=== PATIENT | female | born 1990 | race Caucasian/White ===

== ENCOUNTER 2018-08-19 12:41 | Emergency (ER) | payer OTHER, SELFPAY ==
--- NOTE | 2018-08-19 14:11 | RAD REPORT ---
EXAM DESCRIPTION: US - Abdomen Exam Limited - 08/19/2018 2:02 pm CLINICAL HISTORY: right sided abd pain COMPARISON: No comparisons FINDINGS: The gallbladder demonstrates no gallstones. No pericholecystic fluid or gallbladder wall t hickening. The common bile duct is normal measuring 2 mm. The liver demonstrates no findings of intrahepatic biliary dilatation. IMPRESSION: Unremarkable examination.
[2018-08-19] MEDS ORDERED: ONDANSETRON 4 MG/2 ML VIAL ONE (14:12)
[2018-08-19] MEDS ORDERED: MORPHINE 4 MG/ML SYR ONE (14:12)
[2018-08-19] MEDS ORDERED: NA CHLORIDE 0.9% 1,000 ML ONE (14:13)
[2018-08-19 15:16] LABS: ALT/SGPT 16 U/L (12-78); AST/SGOT 16 U/L (15-37); Albumin 3.5 g/dL (3.4-5.0); Alkaline Phosphatase 59 U/L (45-117); BUN Blood Urea Nitrogen 17 mg/dL (7-18); Bicarbonate 25 mmol/L (21-32); Bilirubin Direct 0.2 mg/dL (0-0.2); Bilirubin Total 0.7 mg/dL (0.2-1.0); Glucose Level 76 mg/dL (74-106); Lipase 105 U/L (73-393); Potassium 3.3 mmol/L (3.5-5.1); Protein, Total 7.4 g/dL (6.4-8.2); Sodium Level 139 mmol/L (136-145)
[2018-08-19 15:40] LABS: Urine Bacteria <20 /HPF (<20); Urine RBC <5 /HPF (NONE SEEN)
[2018-08-19 15:41] LABS: Urine Blood NEGATIVE (NEG); Urine Glucose NEGATIVE (NEG); Urine Protein NEGATIVE (NEG)
[2018-08-19 15:41] LABS: Urine Culture Reflex Order NOT NEEDED; Urine Mucus 1+ /HPF (NONE SEEN)
--- NOTE | 2018-08-19 16:27 | RAD REPORT ---
EXAM DESCRIPTION: CT - Abdomen Pelvis W Contrast - 08/19/2018 4:04 pm COMPARISON: None. TECHNIQUE: Biphasic, helical CT imaging of the abdomen and pelvis was performed following 100 ml non -ionic IV contrast. Oral contrast was given. Image timing was alter due to pain at the injection site . All CT scans are performed using dose optimization technique as appropriate and may include automated exposure control or mA/KV adjustment according to patient size. FINDINGS: No suspicious findings in the lung bases. The liver, spleen, and pancreas show no suspicious findings. Gallbladder and biliary tree are also wi thout suspicious finding. Gallstones can be occult on CT imaging. Symmetric renal function is seen with no hydronephrosis or suspicious renal mass. No pyelonephritis o r acute parenchymal process. No bladder abnormalities. No adrenal abnormalities. No gastric dilatation or wall thickening. No dilated small bowel loops. The appendix is normal. No ac [place] colon finding seen. A retroflexed or retroverted uterus is present. IUD is in place appears to be well positioned. Left o vary contains cysts measuring 3.3 and 2.5 cm in size. No measurable cyst of the right ovary which is normal in size. On opacified small bowel loops abut the right ovary. No cyst rupture or hemorrhage of the right ovary identifiable. No free air, free fluid or inflammatory stranding. No hernia, mass o r bulky lymphadenopathy. No suspicious bony findings. IMPRESSION: No appendicitis or other surgically emergent finding. Left ovarian cysts are present 3.3 and 2.5 cm in size. No suspicious right ovarian finding identifiab le. No pyelonephritis or acute finding. No abnormality seen to explain a right-sided pain pattern.
--- NOTE | 2018-08-19 16:52 | EDPHYS ---
Physician Documentation [facility] Name: Ronnell Albarran Age: 27 yrs Sex: Female : 1990 Arrival Date: 08/19/2018 Time: 12:49 Bed 18 Private MD: ED Physician Gerard Sykes HPI: 08/19 13:55 This 27 yrs old Female presents to ER via Ambulatory with complaints of rn Vomiting, abd pain. 13:55 The patient presents with abdominal pain. Onset: The symptoms/episode began/occurred rn this morning. The symptoms do not radiate. Associated signs and symptoms: Pertinent positives: nausea and vomiting, diarrhea, Pertinent negatives: blood in stools, fever, shortness of breath, vaginal discharge, vomiting blood. The symptoms are described as sharp, stabbing. Modifying factors: The symptoms are alleviated by nothing, the symptoms are aggravated by movement, touching the area. Severity of pain: At its worst the pain was. 13:59 The patient has not experienced similar symptoms in the past. The patient has not rn recently seen a physician. Reports woke up this morning with nausea/vomiting/diarrhea, later in morning began with right sided abd and flank pain, non-radiating, no urinary symptoms. . Historical: - Allergies: 12:49 No Known Allergies; sv - PSHx: 12:49 None; sv - Family history:: not pertinent. - Hospitalizations: : No recent hospitalization is reported. ROS: 14:01 Constitutional: Negative for fever, chills, and weight loss, Eyes: Negative for injury, rn pain, redness, and discharge, Neck: Negative for injury, pain, and swelling, Cardiovascular: Negative for chest pain, palpitations, and edema, Respiratory: Negative for shortness of breath, cough, wheezing, and pleuritic chest pain, Abdomen/GI: + abd pain/nausea/vomiting/diarrhea Back: + low back pain MS/Extremity: Negative for injury and deformity, Skin: Negative for injury, rash, and discoloration, Neuro: Negative for headache, weakness, numbness, tingling, and seizure. Exam: 14:01 Constitutional: This is a well developed, well nourished patient who is awake, alert, rn and in no acute distress. Head/Face: Normocephalic, atraumatic. Eyes: Pupils equal round and reactive to light, extra-ocular motions intact. Lids and lashes normal. Conjunctiva and sclera are non-icteric and not injected. Cornea within normal limits. Periorbital areas with no swelling, redness, or edema. ENT: MMM Cardiovascular: Tachycardic, regular, no murmur Respiratory: Lungs have equal breath sounds bilaterally, clear to auscultation. No increased work of breathing, no retractions or nasal flaring. Abdomen/GI: soft, + right sided abd tenderness, no rebound, no peritoneal signs, more tender RUQ and right mid-abdomen, no tenderness upon pelvic palpation. Back: No spinal tenderness. No costovertebral tenderness. Full range of motion. Skin: Warm, dry with normal turgor. Normal color with no rashes, no lesions, and no evidence of cellulitis. MS/ Extremity: Pulses equal, no cyanosis. Neurovascular intact. Full, normal range of motion. Equal circumference. Neuro: Awake and alert, GCS 15 Vital Signs: 12:49 BP 128 / 77; Pulse 113; Resp 18; Temp 99.2; Pulse Ox 98% ; Weight 56.7 kg; Height 5 ft. sv 6 in. (167.64 cm); 14:03 BP 112 / 81; Pulse 77; Resp 18; Pulse Ox 99% on R/A; Pain 10/10; em 15:00 BP 115 / 66; Pulse 73; Resp 16; Pulse Ox 99% on R/A; em 15:57 BP 119 / 81; Pulse 66; Resp 18; Pulse Ox 100% on R/A; Pain 3/10; em 17:12 BP 112 / ???; Pulse 78; Resp 16; Pulse Ox 99% on R/A; em 12:49 Body Mass Index 20.18 (56.70 kg, 167.64 cm) sv MDM: 13:02 Patient medically screened. rn 16:50 Differential diagnosis: cholecystitis, Cholelithiasis, diverticulitis. rn 16:51 Data reviewed: vital signs, nurses notes, lab test result(s), radiologic studies, CT rn scan, ultrasound, and as a result, I will discharge patient. Counseling: I had a detailed discussion with the patient and/or guardian regarding: the historical points, exam findings, and any diagnostic results supporting the discharge/admit diagnosis, lab results, radiology results, the need for outpatient follow up, to return to the emergency department if symptoms worsen or persist or if there are any questions or concerns that arise at home. Special discussion: I discussed with the patient/guardian in detail that at this point there is no indication for admission to the hospital. It is understood, however, that if the symptoms persist or worsen the patient needs to return immediately for re-evaluation. 08/19 14:01 Order name: Urine Microscopic Only; Complete Time: 16:05 rn 08/19 14:47 Order name: Basic Metabolic Panel; Complete Time: 15:20 EDMS 08/19 14:45 Order name: Abdomen ; Complete Time: 16:38 EDMS 08/19 14:47 Order name: Liver (Hepatic) Function; Complete Time: 15:20 EDMS 08/19 14:47 Order name: Lipase; Complete Time: 15:20 EDMS 08/19 14:47 Order name: CBC with Automated Diff EDMS 08/19 14:53 Order name: Urine Dipstick-Ancillary; Complete Time: 16:05 EDMS 08/19 14:53 Order name: Urine --Ancillary; Complete Time: 16:05 EDMS 08/19 13:13 Order name: IV Saline Lock; Complete Time: 13:45 rn 08/19 13:13 Order name: Labs collected and sent; Complete Time: 13:45 rn 08/19 14:01 Order name: Urine Dipstick-Ancillary (obtain specimen); Complete Time: 14:43 rn 08/19 14:01 Order name: Urine Test (obtain specimen); Complete Time: 14:43 rn 08/19 14:45 Order name: Abdomen Exam Limited; Complete Time: 15:20 EDMS Administered Medications: 14:10 Drug: NS 0.9% 1000 ml Route: IV; Rate: 1000 ml; Site: right antecubital; em 17:13 Follow up: IV Status: Completed infusion; IV Intake: 1000ml em 14:15 Drug: Zofran 4 mg Route: IVP; Site: right antecubital; iw 17:14 Follow up: Response: No adverse reaction; Nausea is decreased em 14:15 Drug: morphine 4 mg Route: IVP; Site: right antecubital; iw 17:13 Follow up: Response: No adverse reaction; Pain is decreased em Disposition: 08/19/18 16:51 Discharged to Home. Impression: Unspecified ovarian cysts, Enteritis. - Condition is Stable. - Discharge Instructions: Ovarian Cyst, Viral Gastroenteritis, Adult. - Prescriptions for Zofran ODT 4 mg Oral tablet,disintegrating - place 1 tablet by TRANSLINGUAL route every 8 hours As needed; 20 tablet. - Medication Reconciliation Form, Thank You Letter, Antibiotic Education, Prescription Opioid Use form. - Follow up: Private Physician; When: As needed; Reason: Recheck today's complaints, Re-evaluation by your physician. - Problem is new. - Symptoms have improved. Signatures: Dispatcher [employer] EDMS Apple Castro, RN RN sv Priyank Montoya, LANDSCAPE DESIGNER LANDSCAPE DESIGNER Estefania Henderson RN RN iw Gerard Sykes MD MD furnace caretaker: (The following items were deleted from the chart) 14:52 14:52 Abdomen Pelvis W Con+CT.RAD.BRZ ordered. EDMS EDMS 14:52 14:52 Abdomen Limited+US.RAD.BRZ ordered. EDIN EDMS 16:34 14:52 BASIC METABOLIC PANEL+C.LAB.BRZ ordered. EDMS EDMS 16:34 14:52 HEPATIC FUNCTION+C.LAB.BRZ ordered. EDMS EDMS 16:34 14:52 LIPASE+C.LAB.BRZ ordered. EDIN EDMS 17:14 16:51 08/19/2018 16:51 Discharged to Home. Impression: Unspecified ovarian cysts; em Enteritis. Condition is Stable. Forms are Medication Reconciliation Form, Thank You Letter, Antibiotic Education, Prescription Opioid Use. Follow up: Private Physician; When: As needed; Reason: Recheck today's complaints, Re-evaluation by your physician. Problem is new. Symptoms have improved. rn
--- NOTE | 2018-08-19 16:52 | ER ---
Nurse's Notes [facility] Name: Ronnell Albarran Age: 27 yrs Sex: Female : 1990 Arrival Date: 08/19/2018 Time: 12:49 Bed 18 Private MD: Diagnosis: Unspecified ovarian cysts;Enteritis Presentation: 08/19 12:49 Presenting complaint: Patient states: started vomiting this morning and then started sv having chest pain and right side pain. Transition of care: patient was not received from another setting of care. Onset of symptoms was August 19, 2018. Care prior to arrival: None. 12:49 Method Of Arrival: Ambulatory sv 12:49 Acuity: BUBBA 3 sv 14:00 Risk Assessment: Do you want to hurt yourself or someone else? Patient reports no em desire to harm self or others. Initial Sepsis Screen: Does the patient meet any 2 criteria? No. Patient's initial sepsis screen is negative. Does the patient have a suspected source of infection? No. Patient's initial sepsis screen is negative. Historical: - Allergies: 12:49 No Known Allergies; sv - PSHx: 12:49 None; sv - Family history:: not pertinent. - Hospitalizations: : No recent hospitalization is reported. Screenin:32 Abuse screen: Denies threats or abuse. Nutritional screening: No deficits noted. em Tuberculosis screening: No symptoms or risk factors identified. Fall Risk None identified. Assessment: 13:32 General: Appears in no apparent distress. distressed, uncomfortable, Behavior is calm, em cooperative. Pain: Complains of pain in left lower back Pain currently is 10 out of 10 on a pain scale. Neuro: Level of Consciousness is awake, alert, obeys commands, Oriented to person, place, time, situation. Cardiovascular: Reports chest pain, Capillary refill Patient's skin is warm and dry. Respiratory: Airway is patent Respiratory effort is even, unlabored, Respiratory pattern is regular, symmetrical. GI: Abdomen is flat, Abd is soft X 4 quads Abdomen is tender to palpation in right upper quadrant and right lower quadrant Reports nausea, vomiting. : Denies burning with urination. Derm: Skin is intact, is healthy with good turgor, Skin is pink, warm \T\ dry. Musculoskeletal: Range of motion: intact in all extremities. 14:35 Reassessment: Patient appears in no apparent distress at this time. Patient and/or em family updated on plan of care and expected duration. Pain level reassessed. Patient is alert, oriented x 3, equal unlabored respirations, skin warm/dry/pink. rates pain 8/10. 15:51 Reassessment: Patient appears in no apparent distress at this time. Patient and/or em family updated on plan of care and expected duration. Pain level reassessed. Patient is alert, oriented x 3, equal unlabored respirations, skin warm/dry/pink. rates pain 3/10 Patient states feeling better. 17:12 Reassessment: Patient appears in no apparent distress at this time. Patient and/or em family updated on plan of care and expected duration. Pain level reassessed. Patient is alert, oriented x 3, equal unlabored respirations, skin warm/dry/pink. rates pain 3/10 Patient states feeling better. Vital Signs: 12:49 BP 128 / 77; Pulse 113; Resp 18; Temp 99.2; Pulse Ox 98% ; Weight 56.7 kg; Height 5 ft. sv 6 in. (167.64 cm); 14:03 BP 112 / 81; Pulse 77; Resp 18; Pulse Ox 99% on R/A; Pain 10/10; em 15:00 BP 115 / 66; Pulse 73; Resp 16; Pulse Ox 99% on R/A; em 15:57 BP 119 / 81; Pulse 66; Resp 18; Pulse Ox 100% on R/A; Pain 3/10; em 17:12 BP 112 / ???; Pulse 78; Resp 16; Pulse Ox 99% on R/A; em 12:49 Body Mass Index 20.18 (56.70 kg, 167.64 cm) sv ED Course: 12:49 Patient arrived in ED. mr 12:49 Triage completed. sv 12:50 Arm band placed on. sv 12:59 Priyank Montoya LVN is Primary Nurse. em 13:02 Gerard Sykes MD is Attending Physician. rn 13:44 Patient has correct armband on for positive identification. Placed in gown. Bed in low mh5 position. Call light in reach. Warm blanket given. Pulse ox on. NIBP on. 13:44 Initial lab(s) drawn, by me, sent to lab. Inserted saline lock: 20 gauge in right mh5 antecubital area, using aseptic technique. Blood collected. 14:49 Abdomen Exam Limited In Process Unspecified. EDMS 15:[address] nj 15:55 CT completed. Patient tolerated procedure well. Patient moved back from CT. nj 16:05 Abdomen In Process Unspecified. EDMS 17:11 No provider procedures requiring assistance completed. IV discontinued, intact, em bleeding controlled, No redness/swelling at site. Pressure dressing applied. Administered Medications: 14:10 Drug: NS 0.9% 1000 ml Route: IV; Rate: 1000 ml; Site: right antecubital; em 17:13 Follow up: IV Status: Completed infusion; IV Intake: 1000ml em 14:15 Drug: Zofran 4 mg Route: IVP; Site: right antecubital; iw 17:14 Follow up: Response: No adverse reaction; Nausea is decreased em 14:15 Drug: morphine 4 mg Route: IVP; Site: right antecubital; iw 17:13 Follow up: Response: No adverse reaction; Pain is decreased em Intake: 17:13 IV: 1000ml; Total: 1000ml. em Outcome: 16:51 Discharge ordered by . rn 17:11 Discharged to home ambulatory, with family. em 17:11 Condition: good 17:11 Discharge instructions given to patient, family, Instructed on discharge instructions, follow up and referral plans. medication usage, Demonstrated understanding of instructions, follow-up care, medications, Prescriptions given X 1. 17:14 Patient left the ED. em Signatures: Dispatcher [employer] Apple Boyd RN RN sv Rivera, Mary mr MontoyaPriyank, NUT STEAMER NUT STEAMER em Estefania Gross RN RN iw Nieto, Roman, MD MD rn Jordan, Nathan nj Martinez, Joan [facility]
== END 2018-08-19 17:14 | disposition home or self-care (01) ==
LOC: ER 12:41
DX: K52.9 Noninfective gastroenteritis and colitis, unspecified (principal); N83.209 Unspecified ovarian cyst, unspecified side
CPT/HCPCS: 36415; 74177; 76705; 80048; 80076; 81003; 81015; 81025; 83690; 85025; J2405; J7030; Q9967

== ENCOUNTER 2019-03-04 13:59 | Emergency (ER) | payer SELFPAY ==
[2019-03-04] MEDS ORDERED: FAMOTIDINE 20 MG/2 ML VIAL IV ONE (14:22)
[2019-03-04] MEDS ORDERED: NA CHLORIDE 0.9% 1,000 ML ONE (14:22)
[2019-03-04] MEDS ORDERED: METHYLPREDNISOLONE 125 MG INJ ONE (14:22)
[2019-03-04] MEDS ORDERED: DIPHENHYDRAMINE 50 MG/ML VIAL ONE (14:22)
[2019-03-04] MEDS ORDERED: FENTANYL CITR 100 MCG/2 ML ONE (14:59)
--- NOTE | 2019-03-04 16:46 | ER ---
Nurse's Notes [facility] Name: Ronnell Albarran Age: 28 yrs Sex: Female : 1990 Arrival Date: 03/04/2019 Time: 14:03 Bed 18 Private MD: Diagnosis: Allergy status to drugs, medicaments and biological substances Presentation: 03/04 14:04 Presenting complaint: states: she [facility] breast [facility] [place] [facility] i noticed bumps on her face today, shes taking diazepam, hydrocodone and cefadroxil; denies N?V;. Transition of care: patient was not received from another setting of care. Onset of symptoms was March 04, 2019. Risk Assessment: Do you want to hurt yourself or someone else? Patient reports no desire to harm self or others. Initial Sepsis Screen: Does the patient meet any 2 criteria? No. Patient's initial sepsis screen is negative. Does the patient have a suspected source of infection? No. Patient's initial sepsis screen is negative. Care prior to arrival: None. 14:04 Method Of Arrival: Ambulatory 14:04 Acuity: BUBBA 3 hj SANITATION INSPECTOR: 14:08 LMP N/A - control method Historical: - Allergies: 14:06 No Known Drug Allergies; hj - PMHx: 14:06 None; hj - PSHx: 14:06 breast; hj Screenin:20 Abuse screen: Denies threats or abuse. Nutritional screening: No deficits noted. em Tuberculosis screening: No symptoms or risk factors identified. Fall Risk None identified. Assessment: 14:20 General: Appears in no apparent distress. uncomfortable, Behavior is calm, cooperative, em Denies fever. Pain: Complains of pain in chest Pain currently is 7 out of 10 on a pain scale. Pain began s/p breast augmentation from . Neuro: Level of Consciousness is awake, alert, obeys commands, Oriented to person, place, time, situation. Cardiovascular: Capillary refill < 3 seconds Patient's skin is warm and dry. Respiratory: Reports pain with respiration Airway is patent Respiratory effort is even, unlabored, Respiratory pattern is regular, symmetrical, Breath sounds are clear bilaterally. Denies shortness of breath. GI: Patient currently denies nausea, vomiting. Derm: Skin is intact, is healthy with good turgor, Skin is pink, warm \T\ dry. Rash noted that is itchy, red, urticaria, on face, back and chest. Musculoskeletal: Capillary refill < 3 seconds, Range of motion: intact in all extremities. 14:55 Reassessment: Patient appears in no apparent distress at this time. Patient and/or em family updated on plan of care and expected duration. Pain level reassessed. Patient is alert, oriented x 3, equal unlabored respirations, skin warm/dry/pink. Patient denies pain at this time. Patient states feeling better. Patient states symptoms have improved. 16:02 Reassessment: Patient appears in no apparent distress at this time. Patient and/or em family updated on plan of care and expected duration. Pain level reassessed. Patient is alert, oriented x 3, equal unlabored respirations, skin warm/dry/pink. rates pain 3/10, hives and itching have decreased Patient states feeling better. Patient states symptoms have improved. 16:58 Reassessment: Patient appears in no apparent distress at this time. Patient and/or em family updated on plan of care and expected duration. Pain level reassessed. Patient is alert, oriented x 3, equal unlabored respirations, skin warm/dry/pink. Patient states feeling better. Patient states symptoms have improved. Vital Signs: 14:06 BP 119 / 84; Pulse 107; Resp 18; Temp 99.4(O); Pulse Ox 96% on R/A; Weight 58.06 kg; hj Height 5 ft. 6 in. (167.64 cm); 14:57 BP 117 / 85; Pulse 88; Resp 16; Pulse Ox 99% on R/A; Pain 7/10; em 16:03 BP 119 / 84; Pulse 82; Resp 16; Pulse Ox 97% on R/A; Pain 3/10; em 16:59 BP 121 / 82; Pulse 79; Resp 16; Pulse Ox 99% on R/A; Pain 3/10; em 14:06 Body Mass Index 20.66 (58.06 kg, 167.64 cm) ED Course: 14:03 Patient arrived in ED. mr 14:06 Triage completed. hj 14:06 Arm band placed on left wrist. hj 14:13 Priyank Montoya LVN is Primary Nurse. em 14:19 Rashaad Browne PA is PHCP. cp 14:19 Gerard Sykes MD is Attending Physician. cp 14:20 Patient has correct armband on for positive identification. Placed in gown. Bed in low em position. Call light in reach. Adult w/ patient. Pulse ox on. NIBP on. 15:14 Priyank Montoya LVN is Primary Nurse. em 16:58 No provider procedures requiring assistance completed. IV discontinued, intact, em bleeding controlled, No redness/swelling at site. Pressure dressing applied. Administered Medications: 14:30 Drug: SOLU-Medrol 125 mg Route: IVP; Site: right antecubital; iw 15:14 Follow up: Response: No adverse reaction; Marked relief of symptoms em 14:33 Drug: Pepcid 20 mg Route: IVP; Site: right antecubital; iw 15:14 Follow up: Response: No adverse reaction; Marked relief of symptoms em 14:34 Drug: Benadryl 25 mg Route: IVP; Site: right antecubital; iw 15:14 Follow up: Response: No adverse reaction; Marked relief of symptoms em 14:34 Drug: NS 0.9% 1000 ml Route: IV; Rate: 1 bolus; Site: right antecubital; iw 15:08 Drug: fentaNYL (PF) 25 mcg Route: IVP; Site: right antecubital; iw 16:57 Follow up: Response: No adverse reaction; Pain is decreased em Outcome: 16:45 Discharge ordered by MD. cp 16:58 Discharged to home ambulatory. em 16:58 Condition: good 16:58 Discharge instructions given to patient, family, Instructed on discharge instructions, follow up and referral plans. medication usage, Demonstrated understanding of instructions, follow-up care, medications, Prescriptions given X 4. 16:59 Patient left the ED. em Signatures: Evy MeeksPriyank LVN GALLEY COOK em Estefania Gross RN RN iw Eddie Addison RN RN hj Page, Corey, PA PA cp Corrections: (The following items were deleted from the chart) 14:08 14:06 Pulse 107bpm; Resp 18bpm; Pulse Ox 96% RA; Temp 99.4F Oral; 58.06 kg; Height 5 hj ft. 6 in.; BMI: 20.6; hj
--- NOTE | 2019-03-04 16:46 | EDPHYS ---
Physician Documentation [facility] Name: Ronnell Albarran Age: 28 yrs Sex: Female : 1990 Arrival Date: 03/04/2019 Time: 14:03 Bed 18 Private MD: ED Physician Gerard Sykes HPI: 03/04 14:23 This 28 yrs old Female presents to ER via Ambulatory with complaints of cp Allergic Reaction. 14:23 The patient presents with rash, swelling of the lips. Onset: The symptoms/episode cp began/occurred this morning. Possible causes: antibiotics, cephalosporin, muscle relaxer, Diazepam, narcotic, hydrocodone. At home the patient or guardian has treated the symptoms with Benadryl. 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 cp 14:30 Eyes: Negative for injury, pain, redness, and discharge. cp 14:30 ENT: Negative for drainage from ear(s), ear pain, sore throat, difficulty swallowing, difficulty handling secretions. 14:30 Cardiovascular: Negative for chest pain, edema. 14:30 Respiratory: Negative for cough, wheezing. 14:30 Abdomen/GI: Negative for abdominal pain, vomiting, diarrhea, constipation. 14:30 Neuro: Negative for altered mental status, headache. 14:30 Skin: Positive for rash, swelling, of the face and lips. cp 14:30 All other systems are negative. Exam: 15:05 Constitutional: The patient appears in no acute distress, alert, awake, cp non-diaphoretic, non-toxic, well developed, well nourished. 15:05 Head/face: Noted is rash, that is urticarial, swelling, that is mild, of the forehead, right cheek, left cheek and mouth. 15:05 Eyes: Periorbital structures: appear normal, Pupils: equal, round, and reactive to light and accomodation, Extraocular movements: intact throughout, Conjunctiva: normal, no exudate, no injection, Lids and lashes: appear normal, bilaterally. 15:05 ENT: External ear(s): are unremarkable, Ear canal(s): are normal, clear, TM's: dullness, bilaterally, Nose: is normal, Mouth: Lips: mild swelling, drooling, is not appreciated, Posterior pharynx: Airway: no evidence of obstruction, patent, swelling, is not appreciated, erythema, is not appreciated, exudate, is not appreciated. 15:05 Neck: ROM/movement: is normal, is supple, without pain, no range of motions limitations, no nuchal rigidity. 15:05 Chest/axilla: Inspection: normal, Palpation: is normal, no crepitus, no tenderness. 15:05 Cardiovascular: Rate: normal, Rhythm: regular. 15:05 Respiratory: the patient does not display signs of respiratory distress, Respirations: cp normal, no use of accessory muscles, no retractions, labored breathing, is not present, Breath sounds: are clear throughout, no decreased breath sounds, no stridor, no wheezing. 15:05 Abdomen/GI: Inspection: abdomen appears normal, Palpation: abdomen is soft and non-tender, in all quadrants. 15:05 Skin: rash can be described as urticarial, on the face. 15:05 Neuro: Orientation: to person, place \T\ time. Mentation: is normal. Vital Signs: 14:06 BP 119 / 84; Pulse 107; Resp 18; Temp 99.4(O); Pulse Ox 96% on R/A; Weight 58.06 kg; hj Height 5 ft. 6 in. (167.64 cm); 14:57 BP 117 / 85; Pulse 88; Resp 16; Pulse Ox 99% on R/A; Pain 7/10; em 16:03 BP 119 / 84; Pulse 82; Resp 16; Pulse Ox 97% on R/A; Pain 3/10; em 16:59 BP 121 / 82; Pulse 79; Resp 16; Pulse Ox 99% on R/A; Pain 3/10; em 14:06 Body Mass Index 20.66 (58.06 kg, 167.64 cm) MDM: 14:23 Patient medically screened. cp 16:44 Data reviewed: vital signs, nurses notes, and as a result, I will discharge patient. cp 16:44 Counseling: I had a detailed discussion with the patient and/or guardian regarding: the cp historical points, exam findings, and any diagnostic results supporting the discharge/admit diagnosis, to return to the emergency department if symptoms worsen or persist or if there are any questions or concerns that arise at home. Response to treatment: the patient's symptoms have markedly improved after treatment, VSS. Facial swelling and rash improved. Patient observed resting comfortably in exam room. Will discharge to home for continued monitoring. Patient instructed to stop antibiotic and diazepam and continue benadryl as directed next 25 hours. Patient instructed to not combine use of benadryl and prescribed hydrocodone. 03/04 14:25 Order name: IV; Complete Time: 14:34 cp Administered Medications: 14:30 Drug: SOLU-Medrol 125 mg Route: IVP; Site: right antecubital; iw 15:14 Follow up: Response: No adverse reaction; Marked relief of symptoms em 14:33 Drug: Pepcid 20 mg Route: IVP; Site: right antecubital; iw 15:14 Follow up: Response: No adverse reaction; Marked relief of symptoms em 14:34 Drug: Benadryl 25 mg Route: IVP; Site: right antecubital; iw 15:14 Follow up: Response: No adverse reaction; Marked relief of symptoms em 14:34 Drug: NS 0.9% 1000 ml Route: IV; Rate: 1 bolus; Site: right antecubital; iw 15:08 Drug: fentaNYL (PF) 25 mcg Route: IVP; Site: right antecubital; iw 16:57 Follow up: Response: No adverse reaction; Pain is decreased em Disposition: 17:15 Chart complete. cp 17:26 Co-signature as Attending Physician, Gerard Sykes MD. rn Disposition: 03/04/19 16:45 Discharged to Home. Impression: Allergy status to drugs, medicaments and biological substances. - Condition is Stable. - Discharge Instructions: Drug Allergy. - Prescriptions for Ibuprofen 800 mg Oral Tablet - take 1 tablet by ORAL route every 8 hours As needed take with food; 30 tablet. Pepcid 20 mg Oral Tablet - take 1 tablet by ORAL route every 12 hours for 5 days; 10 tablet. Prednisone 20 mg Oral Tablet - take 2 tablets by ORAL route once daily for 5 days start morning of 03-05-2019; 10 tablet. Zofran 4 mg Oral Tablet - take 1 tablet by ORAL route every 12 hours As needed; 20 tablet. - Medication Reconciliation Form, Thank You Letter, Antibiotic Education, Prescription Opioid Use form. - Follow up: Private Physician; When: 1 - 2 days; Reason: Recheck today's complaints. - Problem is new. - Symptoms have improved. Signatures: Priyank Montoya, DIE LAY OUT WORKER DIE LAY OUT WORKER Estefania Henderson RN RN iw Nieto, Roman, MD MD rn Joaquin, Henry, RN RN hj Page, Corey, PA PA cp Corrections: (The following items were deleted from the chart) 16:58 14:26 Urine Dipstick-Ancillary ordered. cp em 16:58 14:26 Urine Test ordered. cp em 16:59 16:45 03/04/2019 16:45 Discharged to Home. Impression: Allergy status to drugs, em medicaments and biological substances. Condition is Stable. Forms are Medication Reconciliation Form, Thank You Letter, Antibiotic Education, Prescription Opioid Use. Follow up: Private Physician; When: 1 - 2 days; Reason: Recheck today's complaints. Problem is new. Symptoms have improved. cp 03/05 16:03/04 14:30 Skin: Positive for swelling, of the face and lips, cp cp 03/05 16:02 03/04 14:30 All other systems are negative, cp cp
== END 2019-03-04 16:59 | disposition home or self-care (01) ==
LOC: ER 13:59
DX: R21 Rash and other nonspecific skin eruption (principal); Z88.9 Allergy status to unspecified drugs, medicaments and biological substances
CPT/HCPCS: 96374; 96375; 99283; J2930; J3010; J7030

== ENCOUNTER 2019-03-10 16:49 | Emergency (ER) | payer SELFPAY ==
[2019-03-10 18:03] LABS: Urine Blood TRACE (NEG); Urine Glucose NEGATIVE (NEG); Urine Protein NEGATIVE (NEG)
[2019-03-10] MEDS ORDERED: DIPHENHYDRAMINE 50 MG/ML VIAL ONE (18:25)
[2019-03-10] MEDS ORDERED: LORAZEPAM 1 MG TABLET ONE (18:25)
[2019-03-10] MEDS ORDERED: NA CHLORIDE 0.9% 1,000 ML ONE (18:26)
[2019-03-10] MEDS ORDERED: PANTOPRAZOLE 40 MG INJ ONE (18:26)
[2019-03-10] MEDS ORDERED: SUCRALFATE 1 GM TABLET ONE (18:26)
[2019-03-10 18:33] LABS: Basophils % 0.3 % (0-1.3); Hematocrit 44.9 % (36.0-45.0); Lymphocytes % 15.4 % (15.3-44.8); MPV 8.2 fL (7.6-11.3); RBC Red Blood Cell Count 5.44 M/uL (3.86-4.86)
[2019-03-10 18:52] LABS: Potassium 3.2 mmol/L (3.5-5.1)
--- NOTE | 2019-03-10 19:43 | RAD REPORT ---
EXAM DESCRIPTION: CT - Chest For Pe Angio - 03/10/2019 7:33 pm CLINICAL HISTORY: Chest pain. CHEST PAIN COMPARISON: No comparisons TECHNIQUE: CT angiogram of the pulmonary arteries was performed with MIP. All CT scans are performed using dose optimization technique as appropriate and may include automated exposure control or mA/KV adjustment according to patient size. FINDINGS: No evidence of pulmonary thromboembolism. No acute aortic finding demonstrated. Mild subsegmental atelectasis is present in both posterior lung bases. Trace bilateral pleural fluid is noted. No concerning bony finding. Postsurgical changes of recent breast augmentation noted. IMPRESSION: No evidence of pulmonary thromboembolism. Linear atelectasis with trace pleural fluid in both posterior lung bases.
[2019-03-10] MEDS ORDERED: ACETAMINOPHEN 500 MG TAB ONE (20:04)
[2019-03-10] MEDS ORDERED: POTASSIUM 25 MEQ EFFERV TAB ONE (20:04)
--- NOTE | 2019-03-10 21:01 | ER ---
Nurse's Notes [facility] Name: Ronnell Albarran Age: 28 yrs Sex: Female : 1990 Arrival Date: 03/10/2019 Time: 16:50 Bed 27 Private MD: Diagnosis: Hyperventilation;Gastro-esophageal reflux disease;Chest pain, unspecified Presentation: 03/10 16:56 Presenting complaint: Patient states: chest pain, lower abd pain, and back pain that aa5 began today. Pt states "my hands were cramping up". Pt states "I had a breast augmentation a week ago and we came here with an allergic reaction to penicillin on Wednesday". Transition of care: patient was not received from another setting of care. Onset of symptoms was March 10, 2019. Risk Assessment: Do you want to hurt yourself or someone else? Patient reports no desire to harm self or others. Initial Sepsis Screen: Does the patient meet any 2 criteria? No. Patient's initial sepsis screen is negative. Does the patient have a suspected source of infection? No. Patient's initial sepsis screen is negative. Care prior to arrival: None. 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 - Social history:: Smoking status: Patient/guardian denies using tobacco. - Ebola Screening: : No symptoms or risks identified at this time. Screenin:14 Abuse screen: Denies threats or abuse. Nutritional screening: No deficits noted. la1 Nutritional screening: No deficits noted. Tuberculosis screening: No symptoms or risk factors identified. Fall Risk None identified. Assessment: 18:13 General: Appears in no apparent distress. Behavior is cooperative, anxious. Pain: la1 Complains of pain in chest and abdomen. Pain: Pain does not radiate. Pain began. Cardiovascular: Heart tones S1 S2 present Capillary refill < 3 seconds Patient's skin is warm and dry. Respiratory: Airway is patent Respiratory effort is even, unlabored, Respiratory pattern is regular, symmetrical, Breath sounds are clear. GI: No signs and/or symptoms were reported involving the gastrointestinal system. : No signs and/or symptoms were reported regarding the genitourinary system. 20:52 Reassessment: Patient appears in no apparent distress at this time. No changes from la1 previously documented assessment. Patient and/or family updated on plan of care and expected duration. Pain level reassessed. 21:11 Reassessment: Patient appears in no apparent distress at this time. No changes from la1 previously documented assessment. Patient and/or family updated on plan of care and expected duration. Pain level reassessed. Patient is alert, oriented x 3, equal unlabored respirations, skin warm/dry/pink. Vital Signs: 16:59 BP 102 / 78; Pulse 120; Resp 18 S; Temp 98.2(O); Pulse Ox 100% on R/A; Weight 56.7 kg aa5 (R); Height 5 ft. 6 in. (167.64 cm) (R); Pain 8/10; 18:40 BP 110 / 72; Pulse 101; Resp 16; Pulse Ox 98% on R/A; la1 19:56 BP 111 / 82; Pulse 106; Resp 16; Pulse Ox 98% on R/A; la1 20:52 BP 114 / 76; Pulse 109; Resp 16; Pulse Ox 98% on R/A; la1 16:59 Body Mass Index 20.18 (56.70 kg, 167.64 cm) aa5 ED Course: 16:50 Patient arrived in ED. as 16:55 Arm band placed on. aa5 16:59 Triage completed. aa5 17:11 Bill Gay RN is Primary Nurse. la1 18:05 America Ortiz FNP-C is PHCP. snw 18:05 Aroldo Lange MD is Attending Physician. snw 18:14 Placed in gown. Bed in low position. Call light in reach. Pulse ox on. NIBP on. la1 19:[address] via stretcher. nj 19:36 CT Chest For PE Angio In Process Unspecified. EDMS 20:53 No provider procedures requiring assistance completed. Inserted saline lock: 20 gauge la1 in right antecubital area, using aseptic technique. Patient maintains SpO2 saturation greater than 95% on room air. 21:11 IV discontinued, intact, bleeding controlled, No redness/swelling at site. Pressure la1 dressing applied. Administered Medications: 18:39 Drug: NS 0.9% 1000 ml Route: IV; Rate: 1 bolus; Site: right antecubital; la1 20:53 Follow up: IV Status: Completed infusion la1 18:39 Drug: Benadryl 25 mg Route: IVP; Site: right antecubital; la1 19:57 Follow up: Response: No adverse reaction la1 18:39 Drug: CarafATE 1 grams Route: PO; la1 19:57 Follow up: Response: No adverse reaction la1 18:39 Drug: ProTONIX 40 mg Route: IVP; Site: right antecubital; la1 19:57 Follow up: Response: No adverse reaction la1 18:39 Drug: Ativan 1 mg Route: PO; la1 19:57 Follow up: Response: No adverse reaction; Marked relief of symptoms la1 20:07 Drug: Potassium Effervescent Tablet 50 mEq Route: PO; la1 20:07 Follow up: Response: No adverse reaction la1 20:07 Drug: Tylenol 1000 mg Route: PO; la1 20:08 Follow up: Response: No adverse reaction; Pain is decreased la1 Outcome: 20:59 Discharge ordered by . cintia 21:11 Discharged to home ambulatory. la1 21:11 Condition: stable 21:11 Discharge instructions given to patient, Instructed on discharge instructions, follow up and referral plans. medication usage, Demonstrated understanding of instructions, follow-up care, medications, Prescriptions given X 2. 21:11 Patient left the ED. la1 Signatures: Dispatcher [employer] EDMS America Ortiz FNP-C CREATIVE LEAD-Tania Elder Audri RN RN aa5 Bill Gay RN RN la1 Brian Johnson Corrections: (The following items were deleted from the chart) 17:03 16:56 Presenting complaint: Patient states: chest pain, lower abd pain, and back pain aa5 that began today. Pt states "I had a breast augmentation a week ago and we came here with an allergic reaction to penicillin on Wednesday" aa5
--- NOTE | 2019-03-10 21:02 | EDPHYS ---
Physician Documentation [facility] Name: Ronnell Albarran Age: 28 yrs Sex: Female : 1990 Arrival Date: 03/10/2019 Time: 16:50 Bed 27 Private MD: ED Physician Aroldo Lange HPI: 03/10 18:23 This 28 yrs old Female presents to ER via Ambulatory with complaints of Chest snw Pain, Abdominal Pain. 18:23 Onset: The symptoms/episode began/occurred suddenly, just prior to arrival, and became snw worse and became persistent. Associated signs and symptoms: Pertinent positives: chest pain, cough, shortness of breath, chest pain, back pain, skin crawling, paresthesias,. Modifying factors: the patient symptoms are aggravated by stimulation. The patient has not experienced similar symptoms in the past. pt had recent breast augmentation, experienced allergic response probably secondary to pcn/cephalosporins, rec'd prednisone, today felt burning/sharp pain in chest with shortness of breath, diarrhea. 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 - Social history:: Smoking status: Patient/guardian denies using tobacco. - Ebola Screening: : No symptoms or risks identified at this time. ROS: 18:21 Constitutional: Negative for fever, chills, and weight loss, Eyes: Negative for injury, snw pain, redness, and discharge, ENT: Negative for injury, pain, and discharge, Neck: Negative for injury, pain, and swelling, Cardiovascular: Negative for chest pain, palpitations, and edema, Respiratory: Positive for shortness of breath, cough, no wheezing, + pleuritic chest pain. 18:21 : Negative for injury, bleeding, discharge, and swelling. 18:21 Abdomen/GI: Positive for abdominal pain, diarrhea. 18:21 Back: Positive for pain at rest, pain with movement. 18:21 MS/extremity: Positive for paresthesias, of the bilateral hands and feet. 18:21 Skin: Positive for tingling, itching. Exam: 18:13 Head/Face: Normocephalic, atraumatic. Eyes: Pupils equal round and reactive to light, snw extra-ocular motions intact. Lids and lashes normal. Conjunctiva and sclera are non-icteric and not injected. Cornea within normal limits. Periorbital areas with no swelling, redness, or edema. ENT: Nares patent. No nasal discharge, no septal abnormalities noted. Tympanic membranes are normal and external auditory canals are clear. Oropharynx with no redness, swelling, or masses, exudates, or evidence of obstruction, uvula midline. Mucous membranes moist. Neck: Trachea midline, no thyromegaly or masses palpated, and no cervical lymphadenopathy. Supple, full range of motion without nuchal rigidity, or vertebral point tenderness. No Meningismus. Chest/axilla: Normal chest wall appearance and motion. Nontender with no deformity. No lesions are appreciated. 18:13 Skin: Warm, dry with normal turgor. Normal color with no rashes, no lesions, and no evidence of cellulitis. MS/ Extremity: Pulses equal, no cyanosis. Neurovascular intact. Full, normal range of motion. Neuro: Awake and alert, GCS 15, oriented to person, place, time, and situation. Cranial nerves II-XII grossly intact. Motor strength 5/5 in all extremities. Sensory grossly intact. Cerebellar exam normal. Normal gait. 18:13 Constitutional: The patient appears alert, awake, anxious, carpal pedal spasms 18:13 Cardiovascular: Rate: tachycardic, Rhythm: regular, Pulses: no pulse deficits are appreciated. 18:13 Respiratory: the patient does not display signs of respiratory distress, Respirations: shallow respirations, tachypnea, that is severe, Breath sounds: are clear throughout. 18:13 Abdomen/GI: Inspection: abdomen appears normal, Bowel sounds: normal, Palpation: mild abdominal tenderness, in the right upper quadrant, left upper quadrant, right lower quadrant and left lower quadrant. 18:13 Back: pain, that is moderate, of the low back area and mid back area, ROM is normal. 18:13 Psych: Behavior/mood is anxious, fearful. Vital Signs: 16:59 BP 102 / 78; Pulse 120; Resp 18 S; Temp 98.2(O); Pulse Ox 100% on R/A; Weight 56.7 kg aa5 (R); Height 5 ft. 6 in. (167.64 cm) (R); Pain 8/10; 18:40 BP 110 / 72; Pulse 101; Resp 16; Pulse Ox 98% on R/A; la1 19:56 BP 111 / 82; Pulse 106; Resp 16; Pulse Ox 98% on R/A; la1 20:52 BP 114 / 76; Pulse 109; Resp 16; Pulse Ox 98% on R/A; la1 16:59 Body Mass Index 20.18 (56.70 kg, 167.64 cm) aa5 MDM: 18:05 Patient medically screened. snw 19:24 Data reviewed: vital signs, nurses notes. Data interpreted: Pulse oximetry: on room air snw is 98 %. Interpretation: normal. Counseling: I had a detailed discussion with the patient and/or guardian regarding: the historical points, exam findings, and any diagnostic results supporting the discharge/admit diagnosis, lab results, pt to CT via stretcher in no distress. Calm.. 03/10 17:32 Order name: Urine Dipstick--Ancillary (enter results); Complete Time: 18:06 em1 03/10 17:32 Order name: Urine --Ancillary (enter results); Complete Time: 18:06 em1 03/10 18:13 Order name: CBC with Diff; Complete Time: 18:38 snw 03/10 18:13 Order name: Chem 7; Complete Time: 18:57 snw 03/10 18:13 Order name: DD; Complete Time: 18:57 snw 03/10 18:58 Order name: CT Chest For PE Angio; Complete Time: 19:53 snw 03/10 17:16 Order name: EKG - Nurse/Tech; Complete Time: 17:17 mg2 03/10 17:51 Order name: EKG Electrocardiogram EDMS Administered Medications: 18:39 Drug: NS 0.9% 1000 ml Route: IV; Rate: 1 bolus; Site: right antecubital; la1 20:53 Follow up: IV Status: Completed infusion la1 18:39 Drug: Benadryl 25 mg Route: IVP; Site: right antecubital; la1 19:57 Follow up: Response: No adverse reaction la1 18:39 Drug: CarafATE 1 grams Route: PO; la1 19:57 Follow up: Response: No adverse reaction la1 18:39 Drug: ProTONIX 40 mg Route: IVP; Site: right antecubital; la1 19:57 Follow up: Response: No adverse reaction la1 18:39 Drug: Ativan 1 mg Route: PO; la1 19:57 Follow up: Response: No adverse reaction; Marked relief of symptoms la1 20:07 Drug: Potassium Effervescent Tablet 50 mEq Route: PO; la1 20:07 Follow up: Response: No adverse reaction la1 20:07 Drug: Tylenol 1000 mg Route: PO; la1 20:08 Follow up: Response: No adverse reaction; Pain is decreased la1 Disposition: 03/10/19 20:59 Discharged to Home. Impression: Hyperventilation, Gastro-esophageal reflux disease, Chest pain, unspecified. - Condition is Stable. - Discharge Instructions: Nonspecific Chest Pain, Gastroesophageal Reflux Disease, Adult, Hyperventilation, Rehydration, Adult. - Prescriptions for Vistaril 25 mg Oral capsule - take 1 capsule by ORAL route 3 times per day; 20 capsule. Protonix 40 mg Oral Tablet, Delayed Release (E.C.) - take 1 tablet by ORAL route once daily; 20 tablet. - Work release form, Medication Reconciliation Form, Thank You Letter, Antibiotic Education, Prescription Opioid Use form. - Follow up: Private Physician; When: 2 - 3 days; Reason: Recheck today's complaints, Continuance of care, Re-evaluation by your physician. Follow up: Emergency Department; When: As needed; Reason: Worsening of condition. Addendum: 03/13/2019 09:25 Co-signature as Attending Physician, Aroldo Lange MD I agree with the assessment and k dr plan of care. Signatures: Dispatcher [employer] [facility] Aroldo Lange MD MD [facility] America Ortiz, OVER HAULER HELPER-C OVER HAULER HELPER-Csnw Susi Cuadra, RN RN aa5 Bill Gay, RN RN la1 Adarsh Dobbins RN RN mg2 Corrections: (The following items were deleted from the chart) 03/10 19:03 18:45 Chest Single View+[email or web address].[email or web address] ordered. [facility] 21:11 20:59 03/10/2019 20:59 Discharged to Home. Impression: Hyperventilation; la1 Gastro-esophageal reflux disease; Chest pain, unspecified. Condition is Stable. Forms are Medication Reconciliation Form, Thank You Letter, Antibiotic Education, Prescription Opioid Use. Follow up: Private Physician; When: 2 - 3 days; Reason: Recheck today's complaints, Continuance of care, Re-evaluation by your physician. Follow up: Emergency Department; When: As needed; Reason: Worsening of condition. snw
--- NOTE | 2019-03-11 07:40 | EKG ---
Test Date: 2019-03-10 Test Time: 17:18:02 Wash Test Checker: VARUN MEASUREMENT RESULTS: Intervals: Rate: 105 CT: 118 QRSD: 92 QT: 326 QTc: 430 Somis: P: 70 CT: 118 QRS: 74 T: 61 INTERPRETIVE STATEMENTS: Sinus tachycardia Cannot rule out Anterior infarct, age undetermined Abnormal ECG No previous ECG available for comparison Electronically Signed On 03-11-19 07:39:45 CDT by Kenny Portillo
== END 2019-03-10 21:11 | disposition home or self-care (01) ==
LOC: ER 16:49
DX: R06.4 Hyperventilation (principal); K21.9 Gastro-esophageal reflux disease without esophagitis; Z88.0 Allergy status to penicillin; Z98.82 Breast implant status
CPT/HCPCS: 36415; 71275; 80048; 81003; 81025; 85025; 85379; 93005; 96361; 96374; 96375; 99285; C9113; J7030; Q9967

== ENCOUNTER 2019-07-09 13:45 | Emergency (ER) | payer OTHER, SELFPAY ==
[2019-07-09] MEDS ORDERED: FAMOTIDINE 20 MG/2 ML VIAL IV ONE (14:23)
[2019-07-09] MEDS ORDERED: ONDANSETRON 4 MG/2 ML VIAL ONE (14:23)
[2019-07-09 14:39] LABS: Absolute Lymphocytes (CBC) 1.3 K/uL (0.7-4.9); Basophils % 0.3 % (0-1.3); Hematocrit 40.3 % (36.0-45.0); Lymphocytes % 12.5 % (15.3-44.8); MPV 9.3 fL (7.6-11.3); RBC Red Blood Cell Count 4.93 M/uL (3.86-4.86)
[2019-07-09 14:58] LABS: ALT/SGPT 20 U/L (12-78); AST/SGOT 20 U/L (15-37); Albumin 3.9 g/dL (3.4-5.0); Alkaline Phosphatase 53 U/L (45-117); BUN Blood Urea Nitrogen 10 mg/dL (7-18); Bicarbonate 24 mmol/L (21-32); Bilirubin Direct 0.1 mg/dL (0-0.2); Bilirubin Total 0.7 mg/dL (0.2-1.0); Glucose Level 83 mg/dL (74-106); Lipase 84 U/L (73-393); Potassium 3.5 mmol/L (3.5-5.1); Protein, Total 7.3 g/dL (6.4-8.2); Sodium Level 143 mmol/L (136-145)
[2019-07-09 16:14] LABS: Urine Blood TRACE (NEG); Urine Glucose NEGATIVE (NEG); Urine Protein NEGATIVE (NEG); Urine pH 7.5 (5.0-7.0)
--- NOTE | 2019-07-09 16:15 | RAD REPORT ---
EXAM DESCRIPTION: CT - Abdomen Pelvis Wo Contrast - 07/09/2019 4:05 pm CLINICAL HISTORY: RLQ - no rebound;Abd pain COMPARISON: Abdomen Pelvis W Contrast dated 08/19/2018 TECHNIQUE: Axial [address] imaging of the abdomen and pelvis was performed without IV contrast. No IV contrast was given because of allergy, abnormal renal function, patient refusal or physician re quest. No oral contrast. All CT scans are performed using dose optimization technique as appropriate and may include automated exposure control or mA/KV adjustment according to patient size. FINDINGS: No suspicious findings in the lung bases. The liver and spleen show no suspicious findings on noncontrast imaging. No pancreatic mass identifie d. No measurable degree of pancreatitis on CT imaging. Gallbladder and biliary tree are also without suspicious finding. Gallstones can be occult. No hydronephrosis or suspicious renal mass. No significant adrenal finding. Isodense renal masses an d pyelonephritis cannot be excluded in the absence of IV contrast. The urinary bladder is without sig nificant finding. IUD is in place in a normal-sized uterus. A 2 point centimeter left ovarian cyst is present. No right ovarian abnormality. No cyst rupture or hemorrhage seen. No dilated bowel loops or bowel wall thickening. No appendicitis findings. No free air, free fluid or inflammatory stranding. No hernia, mass or bulky lymphadenopathy. No suspicious bony findings. IMPRESSION: Non-contrast enhanced CT abdomen and pelvis imaging show no significant or suspicious fi nding. No CT findings for pancreatitis. Absence of contrast does limit assessment of pancreatitis and limits assessment of the solid abdomina l visceral. Isodense masses and pyelonephritis are not excluded on a noncontrast study.
[2019-07-09 16:26] LABS: Barbiturates NEGATIVE (NEGATIVE); Benzodiazepines NEGATIVE (NEGATIVE); Cocaine NEGATIVE (NEGATIVE); METHAMPHETAM NEGATIVE (NEGATIVE); Methadone NEGATIVE (NEGATIVE); Opiates NEGATIVE (NEGATIVE); Phencyclidine NEGATIVE (NEGATIVE); THC Cannibis NEGATIVE (NEGATIVE)
--- NOTE | 2019-07-09 17:15 | EDPHYS ---
Physician Documentation [facility] Name: Ronnell Orozco Age: 28 yrs Sex: Female : 1990 Arrival Date: 07/09/2019 Time: 13:50 Bed 6 Private MD: ED Physician Aroldo Lange HPI: 07/09 15:50 This 28 yrs old Female presents to ER via EMS with complaints of Abdominal kdr Pain, Anxiety. 15:50 The patient has been vomiting persistent since about 11:30 last night. She has kdr continued to vomit until just prior to EMS arrival. She has become increasingly weak since the onset and called EMS. Onset: The symptoms/episode began/occurred suddenly, last night. Severity of symptoms: At their worst the symptoms were moderate in the emergency department the symptoms are unchanged. The patient has not experienced similar symptoms in the past. The patient has not recently seen a physician. 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 - Social history:: Smoking status: Patient uses tobacco products, denies chronic smoking, but will smoke occasionally, Patient uses alcohol. - Ebola Screening: : No symptoms or risks identified at this time. ROS: 15:50 Constitutional: Negative for fever, chills, and weight loss, Eyes: Negative for injury, kdr pain, redness, and discharge, ENT: Negative for injury, pain, and discharge, Neck: Negative for injury, pain, and swelling, Cardiovascular: Negative for chest pain, palpitations, and edema, Respiratory: Negative for shortness of breath, cough, wheezing, and pleuritic chest pain, Back: Negative for injury and pain, : Negative for injury, bleeding, discharge, and swelling, MS/Extremity: Negative for injury and deformity, Skin: Negative for injury, rash, and discoloration, Neuro: Negative for headache, weakness, numbness, tingling, and seizure activity. Psych: Negative for depression, anxiety, suicide ideation, homicidal ideation, and hallucinations, Allergy/Immunology: Negative for hives, rash, and allergies, Endocrine: Negative for neck swelling, polydipsia, polyuria, polyphagia, and marked weight changes, Hematologic/Lymphatic: Negative for swollen nodes, abnormal bleeding, and unusual bruising. 15:50 Abdomen/GI: Positive for abdominal pain, nausea, vomiting, and diarrhea, abdominal cramps, Negative for abdominal distension, anorexia, dysphagia, hematemesis, black/tarry stool, rectal pain, rectal bleeding, bowel incontinence, flatulence, acute changes. Exam: 15:50 Constitutional: This is a well developed, well nourished patient who is awake, alert, kdr and in no acute distress. Head/Face: Normocephalic, atraumatic. Eyes: Pupils equal round and reactive to light, extra-ocular motions intact. Lids and lashes normal. Conjunctiva and sclera are non-icteric and not injected. Cornea within normal limits. Periorbital areas with no swelling, redness, or edema. Neck: Trachea midline, no thyromegaly or masses palpated, and no cervical lymphadenopathy. Supple, full range of motion without nuchal rigidity, or vertebral point tenderness. No Meningismus. Chest/axilla: Normal chest wall appearance and motion. Nontender with no deformity. No lesions are appreciated. Cardiovascular: Regular rate and rhythm with a normal S1 and S2. No gallops, murmurs, or rubs. Normal PMI, no JVD. No pulse deficits. Respiratory: Lungs have equal breath sounds bilaterally, clear to auscultation and percussion. No rales, rhonchi or wheezes noted. No increased work of breathing, no retractions or nasal flaring. Abdomen/GI: Soft, non-tender, with normal bowel sounds. No distension or tympany. No guarding or rebound. No evidence of tenderness throughout. Back: No spinal tenderness. No costovertebral tenderness. Full range of motion. Skin: Warm, dry with normal turgor. Normal color with no rashes, no lesions, and no evidence of cellulitis. MS/ Extremity: Pulses equal, no cyanosis. Neurovascular intact. Full, normal range of motion. Neuro: Awake and alert, GCS 15, oriented to person, place, time, and situation. Cranial nerves II-XII grossly intact. Motor strength 5/5 in all extremities. Sensory grossly intact. Cerebellar exam normal. Normal gait. Psych: Awake, alert, with orientation to person, place and time. Behavior, mood, and affect are within normal limits. Vital Signs: 13:54 BP 133 / 88; Pulse 74; Resp 16; Temp 98; Pulse Ox 100% ; Weight 56.7 kg; Height 5 ft. 6 bp in. (167.64 cm); 14:35 BP 125 / 73; Pulse 65; Resp 16; Pulse Ox 100% ; bp 15:25 BP 118 / 69; Pulse 68; Resp 17; Pulse Ox 100% ; bp 16:58 BP 121 / 71; Pulse 76; Resp 17; Pulse Ox 100% ; bp 13:54 Body Mass Index 20.18 (56.70 kg, 167.64 cm) bp MDM: 15:50 Data reviewed: vital signs, nurses notes, lab test result(s), radiologic studies. kdr Counseling: I had a detailed discussion with the patient and/or guardian regarding: the historical points, exam findings, and any diagnostic results supporting the discharge/admit diagnosis, lab results, radiology results, the need for outpatient follow up. 17:14 Patient medically screened. kdr 07/09 14:02 Order name: Basic Metabolic Panel; Complete Time: 15:16 kdr 07/09 14:02 Order name: CBC with Diff; Complete Time: 15:16 kdr 07/09 14:02 Order name: Creatinine for Radiology; Complete Time: 15:16 kdr 07/09 14:02 Order name: Hepatic Function; Complete Time: 15:16 kdr 07/09 14:02 Order name: Lipase; Complete Time: 15:16 kdr 07/09 14:02 Order name: ETOH Level; Complete Time: 15:16 kdr 07/09 14:02 Order name: UDS; Complete Time: 17:08 kdr 07/09 14:51 Order name: Test, Serum; Complete Time: 15:49 eb 07/09 15:24 Order name: Abdomen ; Complete Time: 17:08 EDMS 07/09 16:09 Order name: Urine Dipstick--Ancillary (enter results); Complete Time: 17:08 eb 07/09 14:02 Order name: IV Saline Lock; Complete Time: 14:35 kdr 07/09 14:02 Order name: Labs collected and sent; Complete Time: 14:35 kdr Administered Medications: 14:15 Drug: NS 0.9% 1000 ml Route: IV; Rate: 1 bolus; Site: right antecubital; bp 17:37 Follow up: IV Status: Completed infusion; IV Intake: 1000ml bp 14:15 Drug: Zofran 4 mg Route: IVP; Site: right antecubital; bp 17:37 Follow up: Response: Nausea is decreased bp 14:15 Drug: Pepcid 20 mg Route: IVP; Site: right antecubital; bp 17:36 Follow up: Response: Nausea is decreased bp Disposition: 07/09/19 17:14 Discharged to Home. Impression: Abdominal and pelvic pain, Nausea and vomiting. - Condition is Stable. - Discharge Instructions: Nausea and Vomiting, Adult, [id number], Abdominal Pain, Adult, [id number]. - Prescriptions for Pepcid 20 mg Oral Tablet - take 1 tablet by ORAL route every 12 hours for 5 days; 10 tablet. Zofran 4 mg Oral Tablet - take 1 tablet by ORAL route every 12 hours As needed; 12 tablet. - Medication Reconciliation Form, Thank You Letter, Antibiotic Education form. - Follow up: Private Physician; When: 2 - 3 days; Reason: If symptoms return, Further diagnostic work-up, Recheck today's complaints, Continuance of care, Re-evaluation by your physician. - Problem is new. - Symptoms have improved. Signatures: Dispatcher [employer] [facility] Aroldo Lange MD MD kdr Deny Londono RN RN bp Corrections: (The following items were deleted from the chart) 15:24 14:09 Abdomen Pelvis W [id number].[id number] ordered. [facility] 17:37 17:14 07/09/2019 17:14 Discharged to Home. Impression: Abdominal and pelvic pain; bp Nausea and vomiting. Condition is Stable. Forms are Medication Reconciliation Form, Thank You Letter, Antibiotic Education, Prescription Opioid Use. Follow up: Private Physician; When: 2 - 3 days; Reason: If symptoms return, Further diagnostic work-up, Recheck today's complaints, Continuance of care, Re-evaluation by your physician. Problem is new. Symptoms have improved. kdr
--- NOTE | 2019-07-09 17:15 | ER ---
Nurse's Notes [facility] Name: Ronnell Orozco Age: 28 yrs Sex: Female : 1990 Arrival Date: 07/09/2019 Time: 13:50 Bed 6 Private MD: Diagnosis: Abdominal and pelvic pain;Nausea and vomiting Presentation: 07/09 13:52 Presenting complaint: EMS states: RUQ PAIN AND NAUSEA/VOMITING SINCE AM, ETOH INGESTION bp LAST PM. Transition of care: patient was not received from another setting of care. Onset of symptoms was July 09, 2019. Risk Assessment: Do you want to hurt yourself or someone else? Patient reports no desire to harm self or others. Initial Sepsis Screen: Does the patient meet any 2 criteria? No. Patient's initial sepsis screen is negative. Does the patient have a suspected source of infection? No. Patient's initial sepsis screen is negative. Care prior to arrival: Medication(s) given: Normal saline infusion, 1000 mL, Phenergan, 12.5 mg, IV initiated. 18 GA, in the right antecubital area, Glucose check: 94. 13:52 Method Of Arrival: EMS: [facility] bp 13:52 Acuity: BUBBA 3 bp Triage Assessment: 13:54 General: Appears in no apparent distress. comfortable, Behavior is cooperative, bp appropriate for age, anxious. Pain: Complains of pain in right upper quadrant. EENT: No deficits noted. Neuro: No deficits noted. Cardiovascular: No deficits noted. Respiratory: No deficits noted. GI: Reports upper abdominal pain, nausea, vomiting. : No signs and/or symptoms were reported regarding the genitourinary system. Derm: No deficits noted. Musculoskeletal: No deficits noted. MANAGER OF CONSTRUCTION: 13:54 LMP N/A - control method bp Historical: - Allergies: 13:54 PENICILLINS; bp - Home Meds: 13:54 None [Active]; bp - PMHx: 13:54 None; bp - PSHx: 13:54 BREAST AUGMENTATION; bp - Immunization history:: Adult Immunizations up to date. - Social history:: Smoking status: Patient uses tobacco products, denies chronic smoking, but will smoke occasionally, Patient uses alcohol. - Ebola Screening: : No symptoms or risks identified at this time. Screenin:55 Abuse screen: Denies threats or abuse. Denies injuries from another. Nutritional bp screening: No deficits noted. Tuberculosis screening: No symptoms or risk factors identified. Fall Risk None identified. Assessment: 13:55 General: SEE TRIAGE NOTE. bp 15:26 Reassessment: PT REFUSING CT CONTRAST. AFTER MD C/S, PT AGREEING TO NON-CONTRAST CT. bp 16:58 Reassessment: ALL CURRENT ORDERS COMPLETED. NO N/V SINCE ARRIVAL. bp 17:35 Reassessment: PT D/C HOME AMBULATORY WITH FAMILY, DX WITH NONSPECIFIC ABDOMINAL PAIN. bp Vital Signs: 13:54 BP 133 / 88; Pulse 74; Resp 16; Temp 98; Pulse Ox 100% ; Weight 56.7 kg; Height 5 ft. 6 bp in. (167.64 cm); 14:35 BP 125 / 73; Pulse 65; Resp 16; Pulse Ox 100% ; bp 15:25 BP 118 / 69; Pulse 68; Resp 17; Pulse Ox 100% ; bp 16:58 BP 121 / 71; Pulse 76; Resp 17; Pulse Ox 100% ; bp 13:54 Body Mass Index 20.18 (56.70 kg, 167.64 cm) bp ED Course: 13:50 Patient arrived in ED. bp 13:51 Deny Londono, RN is Primary Nurse. bp 13:53 Triage completed. bp 13:54 Arm band placed on. bp 13:55 Patient has correct armband on for positive identification. Bed in low position. Call bp light in reach. Side rails up X2. 13:56 Maintain EMS IV. Dressing intact. Good blood return noted. Site clean \T\ dry. Gauge \T\ bp site: 18 GAUGE R AC. 14:01 Aroldo Lange MD is Attending Physician. kdr 14:12 Radiology exam delayed due to lab results not completed at this time. (BUN/Creatinine) mw3 test not completed at this time. 14:44 Radiology exam delayed due to lab results not completed at this time. (BUN/Creatinine) mw3 test not completed at this time. 16:04 CT completed. Patient tolerated procedure well. Patient moved back from CT. bq 16:06 Abdomen In Process Unspecified. EDMS 17:35 No provider procedures requiring assistance completed. IV discontinued, intact, bp bleeding controlled, No redness/swelling at site. Pressure dressing applied. Administered Medications: 14:15 Drug: NS 0.9% 1000 ml Route: IV; Rate: 1 bolus; Site: right antecubital; bp 17:37 Follow up: IV Status: Completed infusion; IV Intake: 1000ml bp 14:15 Drug: Zofran 4 mg Route: IVP; Site: right antecubital; bp 17:37 Follow up: Response: Nausea is decreased bp 14:15 Drug: Pepcid 20 mg Route: IVP; Site: right antecubital; bp 17:36 Follow up: Response: Nausea is decreased bp Intake: 17:37 IV: 1000ml; Total: 1000ml. bp Outcome: 17:14 Discharge ordered by . kdr 17:35 Discharged to home ambulatory, with family. bp 17:35 Condition: stable 17:35 Discharge instructions given to patient, family, Instructed on discharge instructions, follow up and referral plans. medication usage, Demonstrated understanding of instructions, follow-up care, medications, Prescriptions given X 2. 17:37 Patient left the ED. bp Signatures: Dispatcher [employer] EDMS Aroldo Lnage MD MD kdr Daisy Aparicio Brian, RN RN bp Milena Candelario mw3 Corrections: (The following items were deleted from the chart) 14:44 14:43 Radiology exam delayed due to test not completed at this time. mw3 mw3
[2019-07-09 20:35] VITALS: O2SAT 100
[2019-07-09 20:38] VITALS: TEMP 98
[2019-07-09 21:05] VITALS: BP 121/71
== END 2019-07-09 17:37 | disposition home or self-care (01) ==
LOC: ER 13:45
DX: R11.2 Nausea with vomiting, unspecified (principal); Z72.0 Tobacco use; Z88.0 Allergy status to penicillin; Z98.82 Breast implant status
CPT/HCPCS: 96361; 85025; 80048; 36415; 80320; 84703; 80076; 80307 ×8; 81003; 83690; 74176; 96375; 96374; 99284; J2405

== ENCOUNTER 2022-01-26 03:02 | Emergency (ER) | payer OTHER ==
--- OUTSIDE RECORDS SUMMARY | 2022-01-26 03:05 | XMS REPORT | Continuity of Care Document ---
:1990 Author Organization [facility] t Address [address] [place] [address] [place] [address] Care Team Providers Name Role Phone Jose Primary Care Physician Chidi Tripathi Attending Clinician Unavailable Collin AGUAYO, Jimenez Attending Clinician Chidi Tripathi Admitting Clinician Unavailable Payers Payer Name Policy Type Policy Number Effective Date Expiration Date S ource Problems Condition Condition Condition Status Onset Resolution Last Treating Co mments Source Name Details Category Date Date Treatment Clinician Date No known No known Disease Unive rs active active ity of problems problems [facility] [place] [facility] Allergies, Adverse Reactions, Alerts Allergy Allergy Status Severity Reaction(s) Onset Inactive Treating Comm ents Source Name Type Date Date Clinician Penicill DA Active [place] S[facility] 01-25 [facility] 00:[facility] [address] [facility] [place] [place] Penicill Propensi Active Swelling Univ ers in ty to 12-12 ity of adverse 00:00: [place] reaction 00 Medical s Branch Social History Social Habit Start Date Stop Date Quantity Comments Source Exposure to 2021-12-02 2021-12-12 Not sure [facility] SARS-CoV-2 (event) 00:00:00 15:37:00 Medica l Branch Sex Assigned At [birth year] [facility] 00:00:00 00:00:00 Medical Branch Smoking Status Start Date Stop Date Source Unknown if ever smoked [facility] Medications Ordered Filled Start Stop Current Ordering Indication Dosage Frequency Signature Comments Components Source Medication Medication Date Date Medication? Clinician (SIG) Name Name ketorolac Yes TAKE 1 Univer s 10 mg 5-13 TABLET BY ity of tablet 15:39: MOUTH [place] 54 EVERY 6 Medical HOURS Branch NEEDED FOR PAIN rimegepant Yes [id number] 75mg Take 75 mg Univers (NURTEC 5-13 by mouth ity of ODT) 75 mg 00:00: [place] needed [place] TbDL 00 for Pain Medical (scale Branch 4-6). cefdinir Yes TAKE 1 Univers 300 mg 5-10 CAPSULE BY ity of capsule 00:00: MOUTH [place] 00 EVERY 12 Medical HOURS FOR Branch 10 DAYS metoclopram Yes Univer s ezio HCl 10 5-07 ity of mg tablet 00:00: [place] [address] Medical Branch cyclobenzap Yes TAKE 1 Univ ers rine 10 mg 5-06 TABLET BY ity of tablet 00:00: MOUTH [place] 00 THREE Medical TIMES A Branch DAY NEEDED butalbital- Yes 1 TABLET Un pako acetaminoph 4-27 ORALLY ity of en-caff 00:00: EVERY 4 [place] 50-325-40 00 HOURS Medica l mg tablet NEEDED FOR Bran ch HEADACHE famotidine Yes 20mg Take 20 mg U nivers 20 mg 4-27 by mouth ity of tablet 00:00: every 12 [place] 00 (twelve) Medical hours. Branch propranolol Yes 80mg Take 80 mg Univers [place] 80 mg 24 4-25 by mouth ity of hr capsule 00:00: daily. [place] [facility] rizatriptan 2021- No PLEASE SEE Univers 10 mg 4-25 05-13 ATTACHED ity of tablet 00:00: 00:00 FOR [place] 00 :00 DETAILED Medical DIRECTIONS Branch Vital Signs Vital Name Observation Time Observation Value Comments Source Systolic blood 2021-12-12 20:44:00 125 mm[Hg] [facility] Diastolic blood 2021-12-12 20:44:00 82 mm[Hg] Unive [facility] Heart rate 2021-12-12 20:44:00 77 /min [facility] Body height 2021-12-12 20:44:00 167.6 cm [facility] Body weight 2021-12-12 20:44:00 61.689 kg [facility] BMI 2021-12-12 20:44:00 21.95 kg/m2 [facility] Oxygen saturation 2021-12-12 20:44:00 98 /min [facility] in Arterial blood Medical Br anch by Pulse oximetry Procedures This patient has no known procedures. Encounters Start End Encounter Admission Attending Care Care Encounter Source Date/Time Date/Time Type Type Clinicians Facility Department ID 2022-01-25 Inpatient EM Deuce [facility] MEDI.01 [id number] [facility] 12:14:00 Azeb [id number] [facility] [place] [facility] 2022-01-25 2022-01-25 Inpatient EM Deuce [facility] MEDI.01 [id number] [facility] 12:14:00 08:27:00 Azeb 75 [facility] s [facility] [place] [facility] 2021-12-12 2021-12-12 Office [facility] [id number] [facility] 16:00:00 16:29:[address] [facility] [id number] [facility] [id number] Ender as ROXY?BLEA [id number] [address] OFFICE BUILDING Results Test Description Test Time Test Comments Results Result Comments Source COVID 19 Asymptomatic IH AG 2022-01-25 11:20:00 Test Item Value Reference Range Interpretation Comme nts COVID 19 Asymptomatic IH AG NEGATIVE NEGATIVE This test has been authorized only (test code = COVNONPUIAG) fo r the detection ofproteins from SARS-CoV-2, not for any other viruses orpatho gens. Negative results should be treated as presumptive and confirmed with a molecular assay , if necessary for patientmanageme nt. Negative results do not rule out COVID-19 andshould not be used as the sole basis for treatment orpat ient management decisions, incl uding infection controldecision s. Negative results should be consi dered in thecontext of a patient's recent exposures, history and the presence of clinical signs and sympt oms consistent withCOVID-19. T his test has not been FDA cleare d or approved; the test hasbeen au thorized by FDA under an Emerge ncy Use Authorization(E UA) for use by laboratories ce rtified under the CLIA thatmeet t he requirements to perform moderat e, high or waivedcomplexit y tests. This test is authorized f or use at thePoint of Care (POC), i.e., in patient care settingsop erating under a CLIA Certificate of Waiver, Certificate ofCompliance, o r Certificate of Accreditation. This test is only authorized for the duration of thedeclaration that circumstances exist justifyin g theauthorization of emergency us e of in vitro diagnostic test sfor detection and/or diagnosi s of COVID-19 under Stgymmj753(b)(1 ) of the Act, 21 U.S.C. 360bbb -3(b)(1), unless theauthorizatio n is terminated or revoked sooner. [id number] 10:24:00 Test Item Value Reference Range Interpretation Comments TROPONIN-I (test 36.7 pg/mL <51.4 N Please Note :New method is code = TROPI) in use for mitesh suring Troponin Jul 17 2021Units are pg/mL which differs from the prior testmethodology (ng/mL) by a factor of 100 0. HCG [id number] 09:57:00 Test Item Value Reference Range Interpretation Comments HCG SERUM (test 211 INTERPRETATI ON:VALUES BETWEEN code = HCG) 15-20 milliInte rnational units/mL NEED T O BERETESTED WITHIN 48 HOURS . All units for these ranges ar e in milliInternatio nalunits/mL0-1 WK AFTER CONCEP TION 0-50 1-2 W KS AFTER CONCEPTION 40-3002-3 WKS A FTER CONCEPTION 100-1 ,0003-4 WKS AFTER CONCEPTIO N 500-6,0001-2 MO NTHS AFTER CONCEPTION 5,000-200,0002- 3 MONTHS AFTER CONCEPTION 10,000-100,0002 ND TRIMESTER 3,000-50,0003RD TRIMESTER 1 ,000-50,000 SPECIMENS WITH AN HCG LEVEL FROM 0-6 milliInternatio nalunits/mL SHOULD BE CONSI DERED NEGATIVE UA RFLX MICR CULT IF [id number] 09:54:00 Test Item Value Reference Range Interpretation Comments UA COLOR (test code = YELLOW YELLOW COLU) UA APPEARANCE (test CLEAR CLEAR code = APPU) UA GLUCOSE DIPSTICK NEGATIVE NEGATIVE (test code = DGLUU) UA BILIRUBIN DIPSTICK NEGATIVE NEGATIVE (test code = BILU) UA KETONE DIPSTICK NEGATIVE NEGATIVE (test code = KETU) UA SPECIFIC GRAVITY 1.010 1.001-1.035 N (test code = SGU) UA BLOOD DIPSTICK 3+ NEGATIVE A (test code = JAYNE) UA PH DIPSTICK (test 7.0 5-9 code = ANGELICA) UA PROTEIN DIPSTICK NEGATIVE NEGATIVE (test code = PROU) UA UROBILINIOGEN 0.2 EU/dL See_Comment [Automated DIPSTICK (test code = messag e] The URO) system which generated this result transmit corinna reference range : <=1.0. The reference range was not used to interpret this result as normal/abnormal . UA NITRITE DIPSTICK NEGATIVE NEGATIVE (test code = ROXI) UA LEUKOCYTE ESTERASE NEG NEGATIVE DIPSTICK (test code = LEUU) UA WBC (test code = 6-10 #/hpf NONE SEEN A WBCU) UA EPITHELIAL CELLS MODERATE #/HPF RARE-FEW A (test code = EPIU) UA RBC (test code = 6-10 #/hpf NONE SEEN A RBCU) UA BACTERIA (test MANY /HPF RARE-FEW A code = BACU) UA MUCUS (test code = RARE NONE SEEN MUCU) Indication for culture: Suprapubic PainSpecimen Description: CLEAN CATCHUR HCG [id number] 09:54:00 Test Item Value Reference Range Interpretation Comments UR HCG QUAL (test code = HCGQLU) POSITIVE Indication for culture: Suprapubic PainSpecimen Description: CLEAN CATCH COMPREHENSIVE METABOLIC [id number] 09:34:00 Test Item Value Reference Range Interpretation Comments SODIUM (test code = NA) 134 mEq/L 135-145 L POTASSIUM (test code = K) 3.9 mEq/L 3.5-5.0 N CHLORIDE (test code = CL) 97 mEq/L 100-115 L CARBON DIOXIDE (test code = CO2) 27 mEq/L 22-31 N ANION GAP (test code = GAP) 14.00 10-20 N GLUCOSE (test code = GLU) 148 mg/dL 65-110 H BLOOD UREA NITROGEN (test code = 6 mg/dL 7-18 L BUN) GLOMERULAR FILTRATION RATE (test 65 ml/min >60 N code = GFR) CREATININE (test code = CREAT) 1.0 mg/dL 0.5-1.0 N TOTAL PROTEIN (test code = PROT) 9.2 gm/dL 6.3-8.2 H ALBUMIN (test code = ALB) 4.1 gm/dL 3.4-4.8 N CALCIUM (test code = CA) 9.8 mg/dL 8.4-10.2 N BILIRUBIN TOTAL (test code = BILT) 1.1 mg/dL 0.2-1.0 H SGOT/AST (test code = AST) 27 units/L 15-37 N SGPT/ALT (test code = ALT) 25 units/L 12-78 N ALKALINE PHOSPHATASE TOTAL (test 86 units/L 46-116 N code = ALKP) CBC W/AUTO [id number] 09:22:00 Test Item Value Reference Range Interpretation Comments WHITE BLOOD CELL (test code = WBC) 11.8 K/mm3 6.5-12.3 N RED BLOOD CELL (test code = RBC) 5.53 M/mm3 3.51-4.69 H HEMOGLOBIN (test code = HGB) 15.5 g/dL 10.1-13.8 H HEMATOCRIT (test code = HCT) 45.6 % 32.5-41.8 H MEAN CELL VOLUME (test code = MCV) 82.5 fL 84.6-96.6 L MEAN CELL HGB (test code = MCH) 28.0 pg 27.3-33.9 N MEAN CELL HGB CONCETRATION (test 34.0 gm/dL 32.0-34.2 N code = MCHC) RED CELL DISTRIBUTION WIDTH (test 12.7 % 12.2-16.3 N code = RDW) PLATELET COUNT (test code = PLT) 407 K/mm3 134-363 H MEAN PLATELET VOLUME (test code = 10.5 fL 9.2-12.7 N MPV) NEUTROPHIL % (test code = NT%) 75.7 % 57.9-77.3 N LYMPHOCYTE % (test code = LY%) 17.9 % 14.5-29.7 N MONOCYTE % (test code = MO%) 4.9 % 3.6-10.2 N EOSINOPHIL % (test code = EO%) 0.3 % 0.0-3.0 N BASOPHIL % (test code = BA%) 0.8 % 0.1-0.9 N NEUTROPHIL # (test code = NT#) 8.9 K/mm3 LYMPHOCYTE # (test code = LY#) 2.1 K/mm3 MONOCYTE # (test code = MO#) 0.6 K/mm3 EOSINOPHIL # (test code = EO#) 0.04 K/mm3 BASOPHIL # (test code = BA#) 0.1 K/mm3 RBC MORPHOLOGY REQUIRED (test code NORMAL NORMAL = RBCM) PLATELET MORPHOLOGY REQUIRED (test NORMAL NORMAL code = PLTMR) - DUP AB/PEL/SC/[id number] 00:00:00 [facility] 1990 Sex: F Patient Name: MARIELENA FNUG Unit No: [id number] EXAMS: CPT CODE: [id number] DUP AB/PEL/SC/LTD 13961 PROCEDURE INFORMATION: Exam: US Pelvis Complete (Transabdominal), Pelvis (Transvaginal), and US Duplex Artery or Vein (Ovaries) Limited Exam date and time: 01/25/2022 9:07 AM Age: 31 years old Clinical indication: Adnexal pain; Pelvic pain; Additional info: Rlq pain, nausea; Reported serum beta HCG level of 211. History of irregular cycles. TECHNIQUE: Imaging protocol: Real-time transabdominal and transvaginal pelvic ultrasound (complete) with image documentation. Transvaginal imaging was used for better evaluation of the endometrium, adnexa,and/or cervix. Real-time duplex ultrasound scan of the arterial or venous flow of the ovaries withB-mode, color Doppler flow and spectral waveform analysis. Complete Pelvis, Limited Duplex. COMPARISON: The patient has a reported outside pelvic ultrasound from 01/22/2022 showing a right adnexal lesion. However, comparison images are not available for review at the time of dictation. An addendum can be generated if comparison images are made available. FINDINGS: Uterus: Retroverted uterus measuring roughly 8.2 x 4.7 x 5.3 cm without myometrial lesions. No intrauterine gestational sac is demonstrated. The endometrial stripe measures approximately 4 mm in thickness.Right ovary/adnexa: The right ovary measures 3.6 x 2.2 x 3.1 cm with normal low resistance blood flow. No focal lesion. A 3.7 cm homogeneously isoechoic structure is seen arising from or abuttingthe right ovary without color Doppler hyperemia, calcification or surrounding fluid. Left ovary/adnexa: The left ovary measures 3.4 x 1.8 x 1.9 cm with normal low resistance blood flow. No focal lesions. Approximately 3.8 x 1.4 x 2 cm anechoic structure is seen in the left adnexa adjacentto the left ovary without yolk sac or pole component. Intraperitoneal space: Low to moderate volume echogenic pelvic fluid is noted in the left adnexa. Urinary bladder: Visualized bladder is unremarkable. IMPRESSION: 1. No intrauterine gestation identified. 2. Grossly stable 3.7 cm isoechoic lesion adjacent to or arising from the right ovary without color Doppler hyperemia (previously reported at 3.4 cm). In the absence of an intrauterine gestation, ectopic should be considered. 3. Echogenic free pelvic fluid, presumed hemorrhagic. 4. Developing, roughly 3.8 cm cystic structure in the left adnexa without color Doppler hyperemia. Hydrosalpinx, hemorrhagic follicle [facility] NAME: MARIELENA FUNG Radiology Department PHYS: Maribel Calvo MD [address] : 1990 AGE: 31 SEX: F [place], [place] [address] LOC: MEENAKSHI PHONE #: [phone] EXAM DATE: 01/25/2022 STATUS: REG ER FAX #: [phone] RAD NO: Page 1 SignedReport (CONTINUED) Patient Name: MARIELENA FUNG Unit No: [id number] EXAMS: CPT CODE: [id number] DUP AB/PEL/S C/LTD 11328 <Continued> or degenerating pelvic hematoma in the differential. 5. Unremarkable maternal bladder. COMMENTS: Case was discussed with Dr. Mary Norton at 1108 hrs. Electronically Signed by Adal Santizo 01/25/2022 at 1113 Reported and signed by: Adal Zimmerman MD CC: Maribel Norton MD Technologist: Gabbie Owen RDMS Probe: Trnscrbd D/ (1113) GCD.CPS Orig Print D/T: S: 01/25/2022 (1114) [facility] [place] [facility] NAME: MARIELENA FUNG Radiology Department PHYS: Maribel Calvo MD[address] : 1990 AGE: 31 SEX: F [place] [address] LOC: CatieERS PHONE #: [phone] EXAM DATE: 01/25/2022 STATUS: REG ER FAX #: [phone] RAD NO: Page 2 Signed Report Patient Name: MARIELENA FUNG Unit No: [id number] EXAMS: CPT CODE: [id number] AB/PEL/SC/LTD 05107 <Continued> [facility] [place] [facility] NAME: MARIELENA FUNG Radiology Department PHYS: Maribel Calvo MD [address] : 1990 AGE: 31 SEX: F [place] [address] LOC: CatieERS PHONE #: [phone] EXAM DATE: 01/25/2022 STATUS: REG ER FAX #: [phone] RAD NO: Page 3 Signed Report- US TRANSVAGINAL [id number] 00:00:00[facility] 1990 Sex: F Patient Name: MARIELENA FUNG Unit No: [id number] EXAMS: CPT CODE: [id number] US TRANSVAGINAL W/PELVIS 73328 PROCEDURE INFORMATION: Exam: US Pelvis Complete (Transabdominal), Pelvis (Transvaginal), and US Duplex Artery or Vein (Ovaries) Limited Exam date and time: 01/25/2022 9:07 AM Age: 31 years old Clinical indication: Adnexal pain; Pelvic pain; Additional info: Rlq pain, nausea; Reported serum beta HCG level of 211. History of irregular cycles. TECHNIQUE: Imaging protocol: Real-time transabdominal and transvaginal pelvic ultrasound (complete) with image documentation. Transvaginal imaging was used for better evaluation of the endometrium, adnexa,and/or cervix. Real-time duplex ultrasound scan of the arterial or venous flow of the ovaries withB-mode, color Doppler flow and spectral waveform analysis. Complete Pelvis, Limited Duplex. COMPARISON: The patient has a reported outside pelvic ultrasound from 01/22/2022 showing a right adnexal lesion. However, comparison images are not available for review at the time of dictation. An addendum can be generated if comparison images are made available. FINDINGS: Uterus: Retroverted uterus measuring roughly 8.2 x 4.7 x 5.3 cm without myometrial lesions. No intrauterine gestational sac is demonstrated. The endometrial stripe measures approximately 4 mm in thickness.Right ovary/adnexa: The right ovary measures 3.6 x 2.2 x 3.1 cm with normal low resistance blood flow. No focal lesion. A 3.7 cm homogeneously isoechoic structure is seen arising from or abuttingthe right ovary without color Doppler hyperemia, calcification or surrounding fluid. Left ovary/adnexa: The left ovary measures 3.4 x 1.8 x 1.9 cm with normal low resistance blood flow. No focal lesions. Approximately 3.8 x 1.4 x 2 cm anechoic structure is seen in the left adnexa adjacentto the left ovary without yolk sac or pole component. Intraperitoneal space: Low to moderate volume echogenic pelvic fluid is noted in the left adnexa. Urinary bladder: Visualized bladder is unremarkable. IMPRESSION: 1. No intrauterine gestation identified. 2. Grossly stable 3.7 cm isoechoic lesion adjacent to or arising from the right ovary without color Doppler hyperemia (previously reported at 3.4 cm). In the absence of an intrauterine gestation, ectopic should be considered. 3. Echogenic free pelvic fluid, presumed hemorrhagic. 4. Developing, roughly 3.8 cm cystic structure in the left adnexa without color Doppler hyperemia. Hydrosalpinx, hemorrhagic follicle [facility] [place] [facility] NAME: MARIELENA FUNG Radiology Department PHYS: Maribel Calvo MD [address] : 1990 AGE: 31 SEX: F [place], [place] [address] LOC: MEENAKSHI PHONE #: [phone] EXAM DATE: 01/25/2022 STATUS: REG ER FAX #: [phone] RAD NO: Page 1 SignedReport (CONTINUED) Patient Name: MARIELENA FUNG Unit No: [id number] EXAMS: CPT CODE: [id number] US TRANSVAGINAL W/PELVIS 99225 <Continued> or degenerating pelvic hematoma in the differential. 5. Unremarkable maternal bladder. COMMENTS: Case was discussed with Dr. Mary Norton at 1108 hrs. Electronically Signed by Adal Santizo 01/25/2022 at 1113 Reported and signed by: Adal Zimmerman MD CC: Maribel Norton MD Technologist: Gabbie Owen RDMS Probe: [id number] Trnscrbd D/ (1113) GCD.CPS Orig Print D/T: S: 01/25/2022 (1113) [facility] [place] [facility] NAME: MARIELENA FUNG Radiology Department PHYS: Maribel Calvo MD[address] : 1990 AGE: 31 SEX: F [place], [place] [address] LOC: Burak.ERS PHONE #: [phone] EXAM DATE: 01/25/2022 STATUS: REG ER FAX #: [phone] RAD NO: Page 2 Signed Report Patient Name: MARIELEAN FUNG Unit No: [id number] EXAMS: CPT CODE: [id number] TRANSVAGINAL W/PELVIS 24919 <Continued> [facility] [place] [facility] NAME: MARIELENA FUNG Radiology Department PHYS: Maribel Calvo MD [address] : 1990 AGE: 31 SEX: F [place], [place] [address] LOC: F.ERS PHONE #: [phone] EXAM DATE: 01/25/2022 STATUS: REG ER FAX #: [phone] RAD NO: Page 3 Signed Report- US PELVIS [id number] 00:00:00 [facility] 1990 Sex: F Patient Name: MARIELENA FUNG Unit No: [id number] EXAMS: CPT CODE: [id number] US PELVIS COMPLETE 07662 PROCEDURE INFORMATION: Exam: US Pelvis Complete (Transabdominal), Pelvis (Transvaginal), and US Duplex Artery or Vein (Ovaries) Limited Exam date and time: 01/25/2022 9:07 AM Age: 31 years old Clinical indication: Adnexal pain; Pelvic pain; Additional info: Rlq pain, nausea; Reported serum beta HCG level of 211. History of irregular cycles. TECHNIQUE: Imaging protocol: Real-time transabdominal and transvaginal pelvic ultrasound (complete) with image documentation. Transvaginal imaging was used for better evaluation of the endometrium, adnexa,and/or cervix. Real-time duplex ultrasound scan of the arterial or venous flow of the ovaries withB-mode, color Doppler flow and spectral waveform analysis. Complete Pelvis, Limited Duplex. COMPARISON: The patient has a reported outside pelvic ultrasound from 01/22/2022 showing a right adnexal lesion. However, comparison images are not available for review at the time of dictation. An addendum can be generated if comparison images are made available. FINDINGS: Uterus: Retroverted uterus measuring roughly 8.2 x 4.7 x 5.3 cm without myometrial lesions. No intrauterine gestational sac is demonstrated. The endometrial stripe measures approximately 4 mm in thickness.Right ovary/adnexa: The right ovary measures 3.6 x 2.2 x 3.1 cm with normal low resistance blood flow. No focal lesion. A 3.7 cm homogeneously isoechoic structure is seen arising from or abuttingthe right ovary without color Doppler hyperemia, calcification or surrounding fluid. Left ovary/adnexa: The left ovary measures 3.4 x 1.8 x 1.9 cm with normal low resistance blood flow. No focal lesions. Approximately 3.8 x 1.4 x 2 cm anechoic structure is seen in the left adnexa adjacentto the left ovary without yolk sac or pole component. Intraperitoneal space: Low to moderate volume echogenic pelvic fluid is noted in the left adnexa. Urinary bladder: Visualized bladder is unremarkable. IMPRESSION: 1. No intrauterine gestation identified. 2. Grossly stable 3.7 cm isoechoic lesion adjacent to or arising from the right ovary without color Doppler hyperemia (previously reported at 3.4 cm). In the absence of an intrauterine gestation, ectopic should be considered. 3. Echogenic free pelvic fluid, presumed hemorrhagic. 4. Developing, roughly 3.8 cm cystic structure in the left adnexa without color Doppler hyperemia. Hydrosalpinx, hemorrhagic follicle [facility] [place] [facility] NAME: MARIELENA FUNG Radiology Department PHYS: Maribel Calvo MD [address] : 1990 AGE: 31 SEX: F [place] [address] LOC: Burak.ERS PHONE #: [phone] EXAM DATE: 01/25/2022 STATUS: REG ER FAX #: [phone] RAD NO: Page 1 SignedReport (CONTINUED) Patient Name: MARIELENA FUNG Unit No: [id number] EXAMS: CPT CODE: [id number] US PELVIS CO MPLETE 81013 <Continued> or degenerating pelvic hematoma in the differential. 5. Unremarkable maternal bladder. COMMENTS: Case was discussed with Dr. Mary Norton at 1108 hrs. Electronically Signed by Adal Santizo 01/25/2022 at 1113 Reported and signed by: Adal Zimmerman MD CC: Maribel Norton MD Technologist: Gabbie Owen RDMS Probe: Trnscrbd D/ (1113) GCD.CPS Orig Print D/T: S: 01/25/2022 (1113) [facility] [place] [facility] NAME: MARIELENA FUNG Radiology Department PHYS: Maribel Calvo MD[address] : 1990 AGE: 31 SEX: F [place], [place] [address] LOC: Burak.ERS PHONE #: [phone] EXAM DATE: 01/25/2022 STATUS: REG ER FAX #: [phone] RAD NO: Page 2 Signed Report Patient Name: MARIELENA FUNG Unit No: [id number] EXAMS: CPT CODE: [id number] PELVIS COMPLETE 37976 <Continued> [facility] [place] [facility] NAME: MARIELENA FUNG Radiology Department PHYS: Maribel Calvo MD [address] : 1990 AGE: 31 SEX: F [place], [place] [address] LOC: CatieSARAH PHONE #: [phone] EXAM DATE: 01/25/2022 STATUS: REG ER FAX #: [phone] RAD NO: Page 3 Signed Report
[2022-01-26] MEDS ORDERED: ONDANSETRON 4 MG/2 ML VIAL ONE (03:35)
[2022-01-26] MEDS ORDERED: MORPHINE 4 MG/ML SYR ONE (03:35)
[2022-01-26 04:04] LABS: Absolute Lymphocytes (CBC) 0.9 K/uL (0.7-4.9); Hematocrit 42.7 % (36.0-45.0); Lymphocytes % 4.9 % (15.3-44.8); MPV 9.3 fL (7.6-11.3); RBC Red Blood Cell Count 5.13 M/uL (3.86-4.86)
[2022-01-26 04:07] LABS: Protime INR 1.12
[2022-01-26 04:28] LABS: Albumin 3.8 g/dL (3.4-5.0); Bilirubin Direct 0.2 mg/dL (0-0.2); Magnesium 1.6 mg/dL (1.8-2.4); Potassium 3.6 mmol/L (3.5-5.1); Protein, Total 8.1 g/dL (6.4-8.2)
[2022-01-26 04:30] LABS: Troponin High Sensitivity 112.6 pg/mL (<58.9)
[2022-01-26] MEDS ORDERED: PROMETHAZINE INJ 25 MG/ML AMP ONE (05:09)
[2022-01-26] MEDS ORDERED: LORazepam 2 MG/ML VIAL ONE (05:40)
[2022-01-26 05:53] LABS: Urine Blood 1+ (Negative); Urine Glucose Negative (Negative); Urine Protein Negative (Negative); Urine Specific Gravity 1.015 (1.005-1.030); Urine pH 6.5 (5.0-7.0)
--- NOTE | 2022-01-26 07:54 | RAD REPORT ---
EXAM DESCRIPTION: CT - Chest For Pe Angio - 01/26/2022 6:56 am CLINICAL HISTORY: Chest pain COMPARISON: 2019 TECHNIQUE: Dynamically enhanced axial 3 mm thick images of the chest were obtained during administra tion of <100> mL Isovue 370 IV contrast. Coronal and oblique reconstruction images were generated and reviewed. Exam utilizes a protocol for optimal evaluation of pulmonary arterial tree. Maximum intensity projections 3D imaging was utilized All CT scans are performed using dose optimization technique as appropriate and may include automated exposure control or mA/KV adjustment according to patient size. FINDINGS: Suboptimal opacification of the pulmonary arteries. Low-density within lingular and lower lobe segmental pulmonary arteries likely thrombus. Equivocal additional thrombus within a right lower lobe pulmonary artery. No gross thrombus within the main, right main or left main pulmonary arteries A thoracic aortic aneurysm is not noted. A pleural effusion is not seen. A pericardial effusion is not seen. A lung consolidation is not present. Breast implants IMPRESSION: Suboptimal opacification the pulmonary arteries. There likely is left lower lobe and sonny gular segmental pulmonary emboli. Equivocal right lower lobe pulmonary emboli
--- NOTE | 2022-01-26 08:08 | RAD REPORT ---
EXAM DESCRIPTION: CT - Abdomen Pelvis W Contrast - 01/26/2022 6:56 am CLINICAL HISTORY: Abdominal pain/vomiting COMPARISON: none. TECHNIQUE: Computed axial tomography of the abdomen pelvis was obtained. 100 cc Isovue-300 was admin istered intravenously. Oral contrast was not requested which limits evaluation of bowel and appendix All CT scans are performed using dose optimization technique as appropriate and may include automated exposure control or mA/KV adjustment according to patient size. FINDINGS: Moderate pneumoperitoneum. 4.6 centimeter heterogeneous mass abuts the superior aspect of the right kidney. It appears to lie wi thin the right adrenal gland. It contains low and intermediate density areas. It has developed since the prior CAT scan The liver, spleen, pancreas, left adrenal adrenal and kidneys appear unremarkable. There is no evidence of diverticulitis. Bladder distention IMPRESSION: Moderate pneumoperitoneum. Presumably this is the sequela of the recent surgery. If carmen ent's symptoms do not improve then a followup CT imaging would be recommended 4.6 centimeter heterogeneous mass probably arises from the right adrenal gland. It has developed sinc e 2019. This may represent a hematoma. Benign and malignant masses are other considerations. Follow-u p ultrasound would be helpful to assess stability/resolution Bladder distention
--- NOTE | 2022-01-26 08:26 | EDPHYS ---
Physician Documentation [facility] Name: Ronnell Orozco Age: 31 yrs Sex: Female : 1990 Arrival Date: 01/26/2022 Time: 03:10 Bed 8 Private MD: ED Physician Gerard Sykes HPI: 01/26 03:38 This 31 yrs old Female presents to ER via EMS with complaints of Nausea.Vomiting.. mh7 03:38 The patient presents to the emergency department with nausea, that is moderate, mh7 vomiting, that is intermittent, described as clear fluid. Onset: The symptoms/episode began/occurred last night. 03:38 Possible causes: unknown. The symptoms are aggravated by nothing. The symptoms are mh7 alleviated by prescription meds. Associated signs and symptoms: Pertinent negatives: abdominal pain, anorexia, belching, constipation, diarrhea, dysuria, fever, flatulence, GI bleeding, hematuria, vaginal discharge. Severity of symptoms: At their worst the symptoms were moderate last night, in the emergency department the symptoms have improved moderately. Patient had surgery for ectopic yesterday and was discharged home last night. She has had nausea and an episode of vomiting.. Historical: - Allergies: 03:14 PENICILLINS; as6 - Home Meds: 03:14 None [Active]; as6 - PMHx: 03:14 Hypertensive disorder; as6 - PSHx: 03:14 breast reduction; D\\T\\C; as6 - Immunization history:: Client reports receiving the Victor Manuel \\T\\ Victor Manuel single-dose vaccine. - Social history:: Smoking status: Patient denies any tobacco usage or history of. ROS: 03:38 Constitutional: Negative for fever, chills, and weight loss, Eyes: Negative for injury, mh7 pain, redness, and discharge, ENT: Negative for injury, pain, and discharge, Neck: Negative for injury, pain, and swelling, Cardiovascular: Negative for chest pain, palpitations, and edema, Respiratory: Negative for shortness of breath, cough, wheezing, and pleuritic chest pain, Back: Negative for injury and pain, : Negative for injury, bleeding, discharge, and swelling, MS/Extremity: Negative for injury and deformity, Skin: Negative for injury, rash, and discoloration, Neuro: Negative for headache, weakness, numbness, tingling, and seizure, Psych: Negative for depression, anxiety, suicide ideation, homicidal ideation, and hallucinations, Allergy/Immunology: Negative for hives, rash, and allergies, Endocrine: Negative for neck swelling, polydipsia, polyuria, polyphagia, and marked weight changes, Hematologic/Lymphatic: Negative for swollen nodes, abnormal bleeding, and unusual bruising. Exam: 03:38 Constitutional: This is a well developed, well nourished patient who is awake, alert, mh7 and in no acute distress. Head/Face: Normocephalic, atraumatic. Eyes: Pupils equal round and reactive to light, extra-ocular motions intact. Lids and lashes normal. Conjunctiva and sclera are non-icteric and not injected. Cornea within normal limits. Periorbital areas with no swelling, redness, or edema. Neck: Trachea midline, no thyromegaly or masses palpated, and no cervical lymphadenopathy. Supple, full range of motion without nuchal rigidity, or vertebral point tenderness. No Meningismus. Chest/axilla: Normal chest wall appearance and motion. Nontender with no deformity. No lesions are appreciated. Cardiovascular: Regular rate and rhythm with a normal S1 and S2. No gallops, murmurs, or rubs. Normal PMI, no JVD. No pulse deficits. Respiratory: Lungs have equal breath sounds bilaterally, clear to auscultation and percussion. No rales, rhonchi or wheezes noted. No increased work of breathing, no retractions or nasal flaring. Back: No spinal tenderness. No costovertebral tenderness. Full range of motion. Skin: Warm, dry with normal turgor. Normal color with no rashes, no lesions, and no evidence of cellulitis. MS/ Extremity: Pulses equal, no cyanosis. Neurovascular intact. Full, normal range of motion. Neuro: Awake and alert, GCS 15, oriented to person, place, time, and situation. Cranial nerves II-XII grossly intact. Motor strength 5/5 in all extremities. Sensory grossly intact. Cerebellar exam normal. Normal gait. Psych: Awake, alert, with orientation to person, place and time. Behavior, mood, and affect are within normal limits. 03:38 Abdomen/GI: Inspection: scar(s), recent laparoscopy scars intact, Bowel sounds: normal, in all quadrants, Palpation: soft, in all quadrants. Vital Signs: 03:10 BP 148 / 109; Pulse 75; Resp 18 S; Temp 97.7(O); Pulse Ox 100% on R/A; Weight 61.23 kg as6 (R); Height 5 ft. 6 in. (167.64 cm) (R); Pain 6/10; 04:51 BP 133 / 96; Pulse 59; Resp 19 S; Pulse Ox 98% on R/A; as6 06:10 BP 123 / 86; Pulse 70; Resp 18 S; Pulse Ox 99% on R/A; as6 07:00 BP 124 / 86; Pulse 69; Resp 16; Pulse Ox 98% on R/A; ph 08:00 BP 123 / 86; Pulse 75; Resp 18; Pulse Ox 99% on R/A; ph 08:47 Pulse 71; Resp 18; ph 08:47 BP 124 / 84; Pulse 71; Resp 18; Pulse Ox 98% on R/A; ph 10:12 BP 117 / 82; Pulse 66; Resp 16; Pulse Ox 99% on R/A; ph 11:16 BP 117 / 73; Pulse 76; Resp 18; Temp 98.2(TE); Pulse Ox 99% on R/A; ph 03:10 Body Mass Index 21.79 (61.23 kg, 167.64 cm) as6 MDM: 07:23 Transition of care: After a detail discussion of the patient's case, care is mh7 transferred to Gerard Sykes MD. 08:23 Patient medically screened. rn 08:24 ED course: signed out to me by Dr. Hoover, pending ct chest/abdomen/pelvis. CT chest rn shows likely multiple PE. Pt requests transfer back to [facility] due to insurance issues and preference. Will anticoagulate with heparin given recent surgery and ability to turn off if needed.. 08:52 ED course: Spoke with transferring physician, agrees with heparin.. rn 01/26 03:15 Order name: Basic Metabolic Panel; Complete Time: 04:53 [facility] 01/26 03:15 Order name: CBC with Diff; Complete Time: 04:26 [facility] 01/26 03:15 Order name: LFT's; Complete Time: 04:53 [facility] 01/26 03:15 Order name: Magnesium; Complete Time: 04:53 [facility] 01/26 03:15 Order name: NT PRO-BNP; Complete Time: 04:53 01/26 03:15 Order name: PT-INR; Complete Time: 04:26 01/26 03:15 Order name: Troponin HS; Complete Time: 04:53 01/26 03:15 Order name: XRAY Chest (1 view) [facility] 01/26 04:58 Order name: CT Chest For PE Angio; Complete Time: 08:05 [facility] 01/26 04:58 Order name: CT Abd/Pelvis - IV Contrast Only; Complete Time: 08:34 01/26 05:53 Order name: Urine Dipstick-Ancillary; Complete Time: 06:19 EDMS 01/26 08:04 Order name: COVID-19 SARS RT PCR (Document "Date of Onset" if Symptomatic); Complete ph Time: 10:01/26 09:48 Order name: Ptt, Activated; Complete Time: 10:46 iw 01/26 03:15 Order name: EKG; Complete Time: 03:16 [facility] 01/26 03:15 Order name: Cardiac monitoring; Complete Time: 03:52 01/26 03:15 Order name: EKG - Nurse/Tech; Complete Time: 03:52 01/26 03:15 Order name: IV Saline Lock; Complete Time: 03:16 01/26 03:15 Order name: Labs collected and sent; Complete Time: 03:52 01/26 03:15 Order name: O2 Per Protocol; Complete Time: 03:16 01/26 03:15 Order name: O2 Sat Monitoring; Complete Time: 03:16 01/26 03:16 Order name: Urine Dipstick-Ancillary (obtain specimen); Complete Time: 05:54 Administered Medications: 03:40 Drug: morphine 4 mg Route: IVP; Infused Over: 4 mins; Site: right antecubital; as6 03:40 Drug: Zofran (Ondansetron) 4 mg Route: IVP; Site: right antecubital; as6 05:09 Drug: Phenergan (promethazine) 12.5 mg Route: IVP; Site: right antecubital; as6 05:43 Drug: Ativan (LORazepam) 1 mg Route: IVP; Site: right antecubital; as6 10:10 Drug: Heparin (DVT/PE- Bolus per protocol) - HEParin 80 units/kg {Co-Signature: ll1 ph (Kasi Oates RN).} Route: IVP; Site: right antecubital; 11:16 Follow up: Response: No adverse reaction ph 10:10 Drug: Heparin (DVT/PE Drip) 18 units/kg/hr - (HEParin 26698 units, D5W 500 ml) ph {Co-Signature: ll1 (Kasi Oates RN).} Route: IV; Rate: calculated rate; Site: right antecubital; 11:16 Follow up: IV Status: Infusion continued upon transfer ph Disposition Summary: 01/26/22 08:25 Transfer Ordered Transfer Location: [facility] rn Reason: Higher level of care rn Condition: Stable rn Problem: new rn Symptoms: are unchanged rn Accepting Physician: (01/26/22 11:48) ph Diagnosis - Pulmonary embolism without acute cor pulmonale rn Forms: - Medication Reconciliation Form rn - SBAR form rn Signatures: Dispatcher [employer] Gerard Doe MD MD rn Hall, Patricia, RN RN ph Lucien Hooevr MD MD mh7 Isidoro Giron RN RN as6 Kasi Oates RN ll1 Corrections: (The following items were deleted from the chart) 11:48 08:25 rn ph
--- NOTE | 2022-01-26 08:26 | ER ---
Nurse's Notes [facility] Name: Ronnell Orozco Age: 31 yrs Sex: Female : 1990 Arrival Date: 01/26/2022 Time: 03:10 Bed 8 Private MD: Diagnosis: Pulmonary embolism without acute cor pulmonale Presentation: 01/26 03:10 Chief complaint: EMS states: called out for n/v. pt had emergency ectopic sx 01/25 and as6 has been nauseous and vomiting since discharge. Coronavirus screen: At this time, the client does not indicate any symptoms associated with coronavirus-19. Ebola Screen: No symptoms or risks identified at this time. Initial Sepsis Screen: Does the patient meet any 2 criteria? No. Patient's initial sepsis screen is negative. Does the patient have a suspected source of infection? No. Patient's initial sepsis screen is negative. Risk Assessment: Do you want to hurt yourself or someone else? Patient reports no desire to harm self or others. Onset of symptoms was January 25, 2022. Care prior to arrival: Medication(s) given: Normal saline infusion, 500 mL, Reglan 5mg IV initiated. 20 GA, in the right forearm, Glucose check: 201. 03:10 Method Of Arrival: EMS: [facility] as6 03:10 Acuity: BUBBA 3 as6 Triage Assessment: 03:14 General: Appears uncomfortable, Behavior is calm, cooperative. Pain: Complains of pain as6 in abdomen. Neuro: Level of Consciousness is awake, alert. Cardiovascular: Patient's skin is warm and dry. Respiratory: Respiratory effort is even, unlabored. GI: Reports lower abdominal pain, upper abdominal pain, nausea, vomiting. Historical: - Allergies: 03:14 PENICILLINS; as6 - Home Meds: 03:14 None [Active]; as6 - PMHx: 03:14 Hypertensive disorder; as6 - PSHx: 03:14 breast reduction; D\T\C; as6 - Immunization history:: Client reports receiving the Victor Manuel \T\ Victor Manuel single-dose vaccine. - Social history:: Smoking status: Patient denies any tobacco usage or history of. Screenin:15 Abuse screen: Denies threats or abuse. Denies injuries from another. Nutritional as6 screening: No deficits noted. Tuberculosis screening: No symptoms or risk factors identified. Fall Risk None identified. Assessment: 04:50 Reassessment: Patient appears in no apparent distress at this time. General: see triage as6 assessment . 06:10 General: Behavior is anxious. GI: Reports nausea. as6 07:30 Reassessment: Patient appears in no apparent distress at this time. Patient and/or ph family updated on plan of care and expected duration. Pain level reassessed. Patient is alert, oriented x 3, equal unlabored respirations, skin warm/dry/pink. 09:00 Reassessment: Patient appears in no apparent distress at this time. Patient and/or ph family updated on plan of care and expected duration. Pain level reassessed. Patient is alert, oriented x 3, equal unlabored respirations, skin warm/dry/pink. 10:10 Reassessment: Patient appears in no apparent distress at this time. Patient and/or ph family updated on plan of care and expected duration. Pain level reassessed. Patient is alert, oriented x 3, equal unlabored respirations, skin warm/dry/pink. Patient denies pain at this time. 11:13 Reassessment: Patient appears in no apparent distress at this time. Patient and/or ph family updated on plan of care and expected duration. Pain level reassessed. Patient is alert, oriented x 3, equal unlabored respirations, skin warm/dry/pink. Report called [facility], awaiting EMS for transport. 11:46 Reassessment: Patient appears in no apparent distress at this time. Patient and/or ph family updated on plan of care and expected duration. Pain level reassessed. Patient is alert, oriented x 3, equal unlabored respirations, skin warm/dry/pink. [facility] at bedside, pt transferred to [facility]. Vital Signs: 03:10 BP 148 / 109; Pulse 75; Resp 18 S; Temp 97.7(O); Pulse Ox 100% on R/A; Weight 61.23 kg as6 (R); Height 5 ft. 6 in. (167.64 cm) (R); Pain 6/10; 04:51 BP 133 / 96; Pulse 59; Resp 19 S; Pulse Ox 98% on R/A; as6 06:10 BP 123 / 86; Pulse 70; Resp 18 S; Pulse Ox 99% on R/A; as6 07:00 BP 124 / 86; Pulse 69; Resp 16; Pulse Ox 98% on R/A; ph 08:00 BP 123 / 86; Pulse 75; Resp 18; Pulse Ox 99% on R/A; ph 08:47 Pulse 71; Resp 18; ph 08:47 BP 124 / 84; Pulse 71; Resp 18; Pulse Ox 98% on R/A; ph 10:12 BP 117 / 82; Pulse 66; Resp 16; Pulse Ox 99% on R/A; ph 11:16 BP 117 / 73; Pulse 76; Resp 18; Temp 98.2(TE); Pulse Ox 99% on R/A; ph 03:10 Body Mass Index 21.79 (61.23 kg, 167.64 cm) as6 ED Course: 03:10 Patient arrived in ED. as6 03:13 Lucien Hoover MD is Attending Physician. mh7 03:14 Triage completed. as6 03:15 Arm band placed on. as6 03:15 Bed in low position. Call light in reach. Side rails up X2. Adult w/ patient. Pulse ox as6 on. NIBP on. 03:16 Isidoro Giron, KOBI is Primary Nurse. as6 03:31 XRAY Chest (1 view) In Process Unspecified. EDMS 03:53 Maintain EMS IV. Dressing intact. Good blood return noted. Site clean \T\ dry. Gauge \T\ as 6 site: 20G RAC. 06:58 CT Chest For PE Angio In Process Unspecified. EDMS 06:58 CT Abd/Pelvis - IV Contrast Only In Process Unspecified. EDMS 08:23 Attending Physician role handed off by Lucien Hoover MD rn 08:23 Gerard Sykes MD is Attending Physician. rn 08:41 initiated transfer to [facility]. bd 10:12 No provider procedures requiring assistance completed. Patient transferred, IV remains ph in place. Administered Medications: 03:40 Drug: morphine 4 mg Route: IVP; Infused Over: 4 mins; Site: right antecubital; as6 03:40 Drug: Zofran (Ondansetron) 4 mg Route: IVP; Site: right antecubital; as6 05:09 Drug: Phenergan (promethazine) 12.5 mg Route: IVP; Site: right antecubital; as6 05:43 Drug: Ativan (LORazepam) 1 mg Route: IVP; Site: right antecubital; as6 10:10 Drug: Heparin (DVT/PE- Bolus per protocol) - HEParin 80 units/kg {Co-Signature: ll1 ph (Kasi Oates RN).} Route: IVP; Site: right antecubital; 11:16 Follow up: Response: No adverse reaction ph 10:10 Drug: Heparin (DVT/PE Drip) 18 units/kg/hr - (HEParin 01951 units, D5W 500 ml) ph {Co-Signature: ll1 (Kasi Oates RN).} Route: IV; Rate: calculated rate; Site: right antecubital; 11:16 Follow up: IV Status: Infusion continued upon transfer ph Medication: 10:12 VIS not applicable for this client. ph Outcome: 08:25 ER care complete, transfer ordered by . rn 11:47 Transferred by ground EMS [facility] Transfer form ph completed. X-rays sent w/ patient. 11:47 Condition: stable 11:47 Instructed on the need for transfer. 11:48 Patient left the ED. ph Signatures: Dispatcher [employer] EDMS Jacqueline Schuler Roman, MD MD rn Hall, Patricia, RN RN Lucien Hoover MD MD [facility] Isidoro Giron RN RN as6 Kasi Oates RN ll1
[2022-01-26] MEDS ORDERED: HEPARIN 5000 UNIT/ML 1 ML VIAL ONE (09:53)
[2022-01-26] MEDS ORDERED: HEPARIN/D5W 25,000 UNIT/500 ML BAG IV ONE (09:53)
[2022-01-26 12:09] VITALS: O2SAT 99
[2022-01-26 12:10] VITALS: BP 117/73; TEMP 98.2
--- NOTE | 2022-01-26 14:38 | EKG ---
Test Date: 2022-01-26 Test Time: 03:31:52 Poultry Offal Icer: MEASUREMENT RESULTS: Intervals: Rate: 76 [place]: 110 QRSD: 88 QT: 524 QTc: 589 [place]: P: 75 [place]: 110 QRS: 75 T: 77 INTERPRETIVE STATEMENTS: Sinus rhythm with short [place] Right atrial enlargement Prolonged QT Abnormal ECG No previous ECG available for comparison Electronically Signed On 01-26-22 14:37:25 CDT by Mike Trotter
--- NOTE | 2022-01-26 19:50 | RAD REPORT ---
EXAM DESCRIPTION: RAD - Chest Single View - 01/26/2022 3:30 am ADDENDUM #1 THIS REPORT CONTAINS FINDINGS THAT MAY BE CRITICAL TO PATIENT CARE: The findings were verbally discus sed via telephone conference with Dr. Hoover 4:18 AM central time January 26, 2022 The results were a cknowledged and understood. The patient had recent surgery for ectopic . Electronically signed by: Apple Emery MD 01/26/2022 4:25 AM CDT End of Addendum EXAM DESCRIPTION: XR Chest, 1 View CLINICAL HISTORY: The patient is 31 years old and is Female; hypertensive TECHNIQUE: Single view of the chest. COMPARISON: No relevant prior studies available. FINDINGS: Lungs: No pulmonary vascular congestion or consolidation. Pleural space: Unremarkable. No pneumothorax. Heart: Unremarkable. No cardiomegaly. Mediastinum: Unremarkable. Bones/joints: No acute fracture. Upper abdomen: Pneumoperitoneum. IMPRESSION: Pneumoperitoneum, which may be from bowel perforation or recent abdominal surgery/proced ure. Clinical correlation suggested. Electronically signed by: Apple Emery MD 01/26/2022 4:14 AM CDT Due to temporary technical issues with the PACS/Fluency reporting system, reports are being signed by the in house radiologists without. review as a courtesy to insure prompt reporting. The interpreting radiologist is fully responsible for the content of the report.
== END 2022-01-26 11:48 ==
LOC: ER 03:02
DX: I26.99 Other pulmonary embolism without acute cor pulmonale (principal); Z98.890 Other specified postprocedural states; Z20.822 Contact with and (suspected) exposure to COVID-19; I10 Essential (primary) hypertension; Z88.0 Allergy status to penicillin
CPT/HCPCS: 93005; 85025; 80048; 36415; 83735; 85610; 80076; 85730; 81003; 84484; 83880; 71275; 74177; 71045; U0003; Q9967; J2550; J1644 ×2; J2405; 96365; 96375; 99285